=== PATIENT | male | born 1960 | race Caucasian/White ===

== ENCOUNTER → 2018-10-04 09:02 | Outpatient (CLI) | payer BC, SELFPAY ==
--- NOTE | 2018-10-04 09:15 | RAD_ITS ---
STUDY: X-RAY - LUMBAR SPINE REASON FOR EXAM: Male, 58 years old. Disc disease TECHNIQUE: 5 view(s) of the lumbar spine were obtained. COMPARISON: None FINDINGS: A mild spondylolisthesis of L4 over L5 and narrowing at the L5-S1 and L1-L2 disc spaces. There are also degenerative changes involving the lower thoracic spine. There are no acute fractures RAD/L/S Spine Min 4 Views IMPRESSION: Degenerative changes of the lower thoracic spine. Intervertebral osteochondrosis at L1-L2 and L5-S1. No fracture. Mild spondylolisthesis of L4 over L5 Electronically Signed: Filipe Malone MD at 6:12 EST Tel , Service support ,
== END ==
PROVIDERS: Family Provider Family Medicine; PCP Family Medicine; Referring Provider Nurse Practitioner Family; Visit Provider Nurse Practitioner Family
DX: M46.96 Unspecified inflammatory spondylopathy, lumbar region (principal); M51.36 Other intervertebral disc degeneration, lumbar region; M51.26 Other intervertebral disc displacement, lumbar region; M54.5 Low back pain; M79.7 Fibromyalgia; M51.46 Schmorl's nodes, lumbar region
CPT/HCPCS: 72110

== ENCOUNTER 2020-07-01 12:34 | Inpatient (IN) | payer BC, SELFPAY ==
[2020-07-01] VITALS (28 sets, daily range): BP systolic 137–177; BP diastolic 81–148; PULSE 54–85; RESP 13–21; TEMP 35.8; O2SAT 95–100; BMI 35.1; BMI 33.5
--- NOTE | 2020-07-01 12:37 | EKG12_ITS ---
Test Reason : Blood Pressure : / mmHG Vent. Rate : 074 BPM Atrial Rate : 074 BPM P-R Int : 172 ms QRS Dur : 096 ms QT Int : 394 ms P-R-T Axes : 045 046 050 degrees QTc Int : 437 ms Normal sinus rhythm Cannot rule out Anterior infarct , age undetermined Abnormal ECG Hyperacute ST elevation in anterior leads Confirmed by LISSY SHELL, COLIN ([id number]), video effects editor PATRICIA BRANNON ([id number]) on 07/03/2020 10:48:26 AM Referred By: Santos Meng Confirmed By:COLIN YUAN MD
[2020-07-01] MEDS: Aspirin 81 MG TAB.CHEW 324 MG PO (12:40)
[2020-07-01] MEDS: Nitroglycerin SL (ED/IMG/CATH) 0.4 MG TABLET SUBLINGUAL (12:45)
--- NOTE | 2020-07-01 12:45 | RAD_ITS ---
STUDY: X-RAY CHEST REASON FOR EXAM: Male, 59 years old. STEMI TECHNIQUE: Single AP portable view of the chest. COMPARISON: None. FINDINGS: EKG electrodes are seen. The lungs are clear and expanded. Scattered calcified granulomas. There is no demonstrated pleural abnormality. Normal size heart. Normal mediastinum and apple. Normal visualized pulmonary arteries. Normal visualized aortic arch and descending thoracic aorta. Normal visualized thoracic spine. Normal visualized ribs, clavicles, and shoulders. There is no demonstrated abnormality of the visualized soft tissue structures of the upper abdomen. RAD/Chest 1 View (Portable) IMPRESSION: No acute abnormality is seen. Electronically Signed: Mohit Rojas, at 13:03 EDT , Service support ,
[2020-07-01] MEDS: Heparin Injection (Vial) 5,000 UNIT/ML VIAL 5000 UNIT IV (12:48)
[2020-07-01 12:50] LABS: Absolute Lymphocyte Count 4.12 X10^3/uL (0.83-4.51); Absolute Neutrophil Count 4.3 X10^3/uL (2.0-7.7); Basophil# 0.04 X10^3/uL; Basophil% 0.4 % (0-1); Eosinophil# 0.22 X10^3/uL; Eosinophils% 2.3 % (0-5); Hematocrit 47.5 % (40-54); Hemoglobin 16.3 g/dL (13.0-16.5); Lymphocyte # 4.12 X10^3/ul (4.0); Lymphocyte % 43.2 % (19-41); Mean Corp Hgb Conc 34.3 g/dL (32-36); Mean Corpuscular Hgb 30.6 pg (27.0-32.0); Mean Corpuscular Volume 89.3 fL (80-94); Mean Platelet Vol. 10.4 fl (6.2-12.0); Monocyte% 8.4 % (0-10); NRBC Flagged by Analyzer 0 % (0-5); Neutrophil # 4.33 X10^3/uL (2.7-7.7); Neutrophil % 45.5 % (47-70); Platelet Count 278 K/mm3 (150-450); RBC Distribution Width CV 12.1 % (11.6-14.6); RBC Distribution Width SD 39.5 fl (35.1-43.9); Red Blood Count 5.32 M/mm3 (4.6-6.2); White Blood Count 9.5 K/mm3 (4.4-11.0)
--- NOTE | 2020-07-01 12:50 | ED.DCSUM_ITS ---
History of Present Illness Chief Complaint: Chest Pain Informant: Patient Narrative: Patient is a 59-year-old male who presents to the emergency department for active chest pain. He states that this started yesterday. It was initially intermittent but became more constant. He currently rates as an 8 out of 10 but does fluctuate in severity. No radiation of his symptoms. It is over the bilateral chest. He has never had this happen before in the past. Denies any history of CAD. He does have a family history of heart attacks. He states his legs have been swollen over the past couple of days bilaterally. No history of DVT/PE. He is short of breath with this. Patient had a near syncopal episode in the waiting room walking in from his car. He denies any recent illness including a cough, cold, congestion. No fevers or chills. No abdominal pain. Past Medical History - Allergies and Home Meds Allergies/Adverse Reactions: Allergies No Known Allergies Allergy (Verified 07/01/20 12:37) Primary Care Physician: Tam Reid III, MD [Primary Care Provider] - Prior records reviewed: Yes Past Medical History: - - Hypertension Review of Systems All systems negative except as indicated General: Reports: Sweats. Denies: Chills, Fever Eyes: Denies: Visual changes - bilaterally Cardiovascular: Reports: Chest pain. Denies: Palpitations Respiratory: Reports: Dyspnea. Denies: Cough Gastrointestinal: Denies: Abdominal pain, Nausea, Vomiting Musculoskeletal: Reports: Swelling. Denies: Back pain Skin: Denies: Rash Neurological: Denies: Headache, Weakness Physical Exam Vital Signs/Narrative: Vital Signs Temp Pulse Resp BP Pulse Ox 07/01/20 12:35 96.5 F L 67 18 167/148 H 100 Inital Vital Signs reviewed: Yes General: Well nourished, Well developed, Acute Distress, - - Diaphoretic Head: Normocephalic, Atraumatic Eyes: Perrl, EOMI ENT: Moist mucous membranes, No rhinorrhea Neck: Supple, Nontender Cardiovascular: Regular rate, Regular rhythm, No murmurs Respiratory: No distress, CTA bilaterally, Chest nontender Abdomen: Soft, Nontender, Nondistended, Normal bowel sounds Back: Nontender, Normal Inspection Extremities: Nontender Skin: Normal color, No rash Neurological: Alert, Oriented x3, Cranial nerves II-XII grossly intact, Normal Strength, Normal Sensation Psychological: Normal affect, Normal Mood Diagnostic/Tx/Re-eval - EKG Initial EKG Interpretation: - - Initial EKG performed at 1236 showed a rate of 68 bpm. There is mild elevation in V1 with peaked T waves in the anterior lateral leads. No reciprocal changes. Follow-up EKG Interpretation: - - Repeat EKG at 1245 had a ventricular rate of [address] b[address] elevations in the anterior lateral leads. Also some elevation in lead I, 2. There is ST depression in aVR. At that time STEMI alert was called. - Medical Decision Making Patient presents to the ED for chest pain. Upon arrival he is in acute distress, diaphoretic complaining of chest pain. He is given a dose of aspirin and sublingual nitro. He is hypertensive upon arrival. His initial EKG had mild ST elevation in V1 with peak T waves so cardiology was consulted. Shortly after we repeated the EKG which had significant ST elevations and STEMI alert was called. Patient was then taken directly to the [facility]. Initial chest x- ray did not show any evidence of widened mediastinum, this was prior to formal radiologist read. ED Disposition - Plan for ED Patient: Disposition: [facility] Diagnosis: STEMI (ST elevation myocardial infarction), Chest pain, Dyspnea Referrals: Tam Reid III, MD [Primary Care Provider] -
--- NOTE | 2020-07-01 13:03 | NURSING ---
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
[2020-07-01 13:07] LABS: Anion Gap 6 (5-15); BUN 19 mg/dL (7-18); BUN/Creat Ratio 17.4 RATIO (10-20); Calcium,Total 9.4 mg/dL (8.5-10.1); Chloride 110 mmol/L (98-107); Creatinine, Serum 1.09 mg/dL (0.70-1.30); EST Glomerular Filtration Rate 73 mL/min (>60); Est Glom Filt Rate - Afr Amer 89 mL/min (>60); Estimated Creatinine Clearance 74.41 ml/min; Glucose 133 mg/dL (74-106); Magnesium 2.5 mg/dL (1.6-2.6); Partial Thromboplast Time 33.8 Seconds (24.1-36.2); Potassium 3.9 mmol/L (3.5-5.1); Sodium Level 140 mmol/L (136-145)
--- NOTE | 2020-07-01 13:22 | EKG12_ITS ---
Test Reason : CP Blood Pressure : / mmHG Vent. Rate : 068 BPM Atrial Rate : 068 BPM P-R Int : 170 ms QRS Dur : 098 ms QT Int : 406 ms P-R-T Axes : 059 041 035 degrees QTc Int : 431 ms Sinus rhythm with Premature supraventricular complexes Hyperacute ST changes Probable anterior ischemia Confirmed by LISSY SHELL, COLIN ([id number]), social media editor PATRICIA BRANNON ([id number]) on 07/03/2020 10:50:09 AM Referred By: Santos Meng Confirmed By:COLIN YUAN MD
--- NOTE | 2020-07-01 13:23 | EKG12_ITS ---
Test Reason : CP Blood Pressure : / mmHG Vent. Rate : 086 BPM Atrial Rate : 086 BPM P-R Int : 148 ms QRS Dur : 118 ms QT Int : 380 ms P-R-T Axes : 059 050 041 degrees QTc Int : 454 ms Sinus rhythm with Fusion complexes Possible Left atrial enlargement Non-specific intra-ventricular conduction delay Acute Anterior AL Abnormal ECG Confirmed by LISSY SHELL, COLIN ([id number]), legal editor PATRICIA BRANNON ([id number]) on 07/03/2020 10:51:04 AM Referred By: Santos Meng Confirmed By:COLIN YUAN MD
--- NOTE | 2020-07-01 14:00 | EKG12_ITS ---
Test Reason : AM EKG Blood Pressure : / mmHG Vent. Rate : 056 BPM Atrial Rate : 056 BPM P-R Int : 184 ms QRS Dur : 086 ms QT Int : 490 ms P-R-T Axes : 039 034 129 degrees QTc Int : 472 ms Sinus bradycardia Marked T wave abnormality, consider anterolateral ischemia Prolonged QT Septal [place], age undetermined, cannot be excluded Abnormal ECG Confirmed by SLICK SHELL, KENNEY ([id number]), publishing editor MAULIK CALZADA ([id number]) on 07/10/2020 10:02:28 AM Referred By: Santos Meng Confirmed By:KENNEY KRUGER MD
[2020-07-01] MEDS: 0.9% Normal Saline 1,000 ML 60 ML IV (14:28)
--- NOTE | 2020-07-01 14:49 | CRPHASE1 ---
Patient Communication Former Patient:: Phase I PHII Cardiac Rehab Discussed with Patient:: Yes Guide to Cardiac Rehab Given to Patient:: Yes Cardiac Rehab Facility Choice List Given to Patient:: Yes Choice Program [facility] CR PHII:: Communication Given to CR Tube Closing Machine Operator:: Santos Meng Phase II Cardiac Rehab:: Yes Sessions:: 36 sessions - 3 days/wk, 12 weeks Risk Factors/Lifestyle Smoking Status: Former smoker Second-Hand Smoke:: No Hx Hypertension: Yes Hx Diabetes Mellitus Type 1: No Hx Diabetes Mellitus Type 2: No Hx Metabolic Disorders: No Hx Dyslipidemia: No Hx Obesity: Yes Stress: Recent ETOH: Yes Caffeine: Yes Substance Abuse: No Risk Factor for Sedentary Lifestyle: Moderate Risk Past Cardiac Illness: Coronary Artery Disease, Myocardial Infarction Phase I Education Given On:: Viola, Antiplatelet medication Issues Affecting Care:: None Knowledge of Condition:: No Learning Preferences: Verbal Cardiac Rehabilitation Info Cardiac Rehabilitation Program Information: Cardiac Rehabilitation is important for patients like you who are recovering from a heart problem. Cardiac rehabilitation programs are recognized as integral to the continued care of the patient with coronary heart disease. The cardiac rehabilitation program is designed to optimize a patient's physical, psychological, and social functioning. Health adult care manager work in cardiac rehabilitation programs and assist you with getting the treatments you need to get stronger and healthier - like exercise, healthy eating habits, and medications. Cardiac rehabilitation has been show to help people with heart problems live longer and have better life enjoyment than people who do not go to cardiac rehabilitation. Please contact the Cardiac Rehabilitation Program at [facility] at in two weeks if you have not heard from them.
--- NOTE | 2020-07-01 14:52 | CRPH1.INSTRU ---
General Education CAD and cardiac anatomy and function:: Patient communicates acknowledgment Explanation of diagnoses and procedures:: Patient communicates acknowledgment Sign/Symptoms of MN:: Patient communicates acknowledgment Antiplatelet therapy: Patient communicates acknowledgment, Family communicates acknowledgment Proper use of NTG-SL: Patient communicates acknowledgment Emergency procedures and activation of EMS: Patient communicates acknowledgment Compliance of all prescribed medications: Patient communicates acknowledgment Smoking Recommendations Include:: Previous smoker; encourage continued cessation Nicotine/Smoking Response Code:: Patient communicates acknowledgment Dyslipidemia Patient Dyslipidemia Risk Factors Are:: Total Cholesterol, Triglycerides, HDL, LDL Recommendations Include:: Lipid profile not available Dyslipidemia Response Code:: Patient communicates acknowledgment Overweight/Obesity Patient Overweight/Obesity Risk Factors Are:: Obesity - > or = 30 Recommendations Include:: Weight loss of 5-10%, Reduced calorie diet, Exercise 5-7 times/week Overweight/Obesity:: Patient communicates acknowledgment Hypertension Recommendations Include:: Maintain BP <130/85, DASH dietary guidelines, Decrease/maintain normal body weight, Moderation of ETOH Hypertension:: Patient communicates acknowledgment Heart Disease Patient Heart Disease Risk Factors Are:: Family history of heart disease < 65 years old Recommendations Include:: Educated family members of their risk Heart Disease Response Code:: Patient communicates acknowledgment Diabetes Patient Diabetes Risk Factors Are:: No documented hx of diabetes Diabetes:: Patient communicates acknowledgment Sedentary Patient Sedentary Risk Factors Are:: Lack of regular exercise Recommendations Include:: Aerobic exercise 5-7 times/week for 20-30 minutes continuously, Benefits of regular exercise, Discussed home walking program, Monitored Outpatient Cardiac Rehab Sedentary Response Code:: Patient communicates acknowledgment Stress Recommendations Include:: Identification of stressors, and assessment of coping skills, Stress management techniques Stress Response Code:: Patient communicates acknowledgment
--- NOTE | 2020-07-01 15:04 | CASEMGMT ---
RN CM Assessment Note Intro role of CM to patient in room. Patient is awake, alert and able to participate in assessment. Patient states he works, is very independent and no concerns at discharge. Pt is active, states he walks his dog daily. His father and two brothers from heart attacks in their 50's so patient is concerned re: his health. RN CM discussed that he would be given information on diet, exercise and medications on dc and to follow these closely, including follow with his physician. Patient appears upbeat and talkative, deflecting by talking about his dog, but underlying anxious re: this event. Emotional support given, allowed pt to talk about his family history and questions answered. 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 Presentation: active chest pain Diagnosis: STEMI alert called. Pt to cath lab technologist- PCP: Dr. Tam Reid III Specialists: Dr. Meng, cardiology Insurance: [facility] Pharmacy: [place], [place] Prescription Benefit: yes. Brilinta card given to patient and explained. LNOK: , Mariana Saldivar Living Arrangements: Lives independently with his . No care needs identified. Tranportation: drives, or can drive. DME: none HHC: none SNF: none Patient DC Goals: Home DC Plan: anticipate home on discharge. CM available for discharge planning coordination. Contact CM for any concerns/needs that may arise. Ildefonso BANERJEE RN ACM
--- NOTE | 2020-07-01 15:07 | CON.PCM_ITS ---
Reason for Consult Date of Consultation: 07/01/20 Reason for Consultation: STEMI History of Present Illness: Patient is a 59-year-old male who presents to the emergency department for active chest pain. He states that this started yesterday. It was initially intermittent but became more constant. No radiation of his symptoms. It is over the bilateral chest. He has never had this happen before in the past. Denies any history of CAD. He does have a family history of heart attacks. He states his legs have been swollen over the past couple of days bilaterally. No history of DVT/PE. He is short of breath with this. Patient had a near syncopal episode in the waiting room walking in from his car. He denies any recent illness including a cough, cold, congestion. No fevers or chills. No abdominal pain. In the emergency room initial EKG did not show a definite STEMI but a subsequent EKG done at 12:[address] elevation [place]. Patient was evaluated in the emergency room. He was then brought to the Extrusion Press Supervisor and underwent coronary angiography which revealed 100% occlusion of the mid LAD that was treated with thrombectomy and drug-eluting stent placement. Patient was chest pain-free at the end of the procedure. Review of systems: All systems reviewed. All others negative except that in HPI. Past Medical History Allergies/Adverse Reactions: Allergies No Known Allergies Allergy (Verified 07/01/20 12:37) Home Medications: Ambulatory Orders Medication Instructions Recorded Amlodipine [Norvasc] 10 mg PO DAILY 07/01/20 Diclofenac [Voltaren] 75 mg PO DAILY 07/01/20 Gabapentin 600 mg PO TID 07/01/20 Oxycodone HCl/Acetaminophen 1 ea PO TID 07/01/20 [Oxycodone-Acetaminophen 5-325] Smoking Status: Former smoker Objective: Vital Signs Temp Pulse Resp BP Pulse Ox 96.5 F L 67 18 139/90 H 98 07/01/20 13:05 07/01/20 14:45 07/01/20 14:45 07/01/20 14:45 07/01/20 14:45 Oxygen Flow Rate (L/min) 2 Oxygen Delivery Method Room Air Weight: 233 lb 3.985 oz Body Mass Index (BMI) 33.5 General: Awake, Alert, Oriented x 3 HEENT: Atraumatic Oral: Moist Mucosa Neck: Supple Lungs: Clear to auscultation Abdomen: Soft Skin: No Rashes Psych/Mental Status: Appropriate 07/01/20 12:33: WBC 9.5, RBC 5.32, Hgb 16.3, Hct 47.5, MCV 89.3, MCH 30.6, MCHC 34.3, Plt Count 278, MPV 10.4, Immature Gran % (Auto) 0.200, Neut % (Auto) 45.5 L, Lymph % (Auto) 43.2 H, [place] % (Auto) 8.4, Eos % (Auto) 2.3, Baso % (Auto) 0.4, Absolute Neuts (auto) 4.3, Nucleated RBC % 0 07/01/20 12:33: Sodium 140, Potassium 3.9, Chloride 110 H, Carbon Dioxide 24.0, Anion Gap 6, BUN 19 H, Creatinine 1.09, Est GFR (MDRD) Af Amer 89, Est GFR (MDRD) Non-Af 73, BUN/Creatinine Ratio 17.4, Glucose 133 H, Calcium 9.4, Magnesium 2.5, Troponin I 0.946 H* 07/01/20 12:33: APTT 33.8 Rhythm: EKG: ECHO: Stress Test: Cardiac Cath: PCI: CT Surgery: Holter monitor: EPS: PPM: CXR: Chest CT Scan: Assessment/Plan 1. STEMI: Patient underwent thrombectomy and drug-eluting stent placement to the LAD. We will keep the patient on aspirin, Brilinta, Coreg, lisinopril, statin. He does have significant LV dysfunction on the LV gram. 2. LV dysfunction: Patient presented soon after his symptoms became persistent. We will check a 2D echo while he is in the hospital. If his EF is still low then he may need another EF assessment in 3 months. For now we will continue the Coreg and lisinopril. 3. Hypertension: We will adjust his medications while he is in the hospital.
--- NOTE | 2020-07-01 15:31 | EKG12_ITS ---
Test Reason : POST PCI Blood Pressure : / mmHG Vent. Rate : 060 BPM Atrial Rate : 060 BPM P-R Int : 186 ms QRS Dur : 092 ms QT Int : 396 ms P-R-T Axes : 028 054 005 degrees QTc Int : 396 ms Normal sinus rhythm Normal ECG When compared with ECG of 01-JUL-2020 12:45, MANUAL COMPARISON REQUIRED, DATA IS UNCONFIRMED Confirmed by RUTHANN SHELL, MARIAN ([id number]), purchasing expeditor PATRICIA BRANNON ([id number]) on 07/11/2020 1:38:15 PM Referred By: Santos Meng Confirmed By:CON MENG MD
--- NOTE | 2020-07-01 15:34 | ECHOCS_ITS ---
Reason For Study: STEMI Procedure This was a 2D Doppler, Color Flow transthoracic echocardiogram. The study was technically difficult. Contrast injection was performed. Exam performed portable in ICU/CCU. Left Ventricle Normal LV size. The estimated ejection fraction is 35-40 %. Stage 1 diastolic dysfunction. Hypokinesis of the apex and anterior wall. Right Ventricle Normal RV size. Normal systolic function. Atria Normal left atrium. Normal right atrium. Mitral Valve There is no mitral valve stenosis. No mitral valve insufficiency. Tricuspid Valve There is no tricuspid stenosis. Trivial tricuspid valve insufficiency. Unable to estimate RV systolic pressure due to insufficient tricuspid regurgitant envelope. Aortic Valve Trisinus/trileaflet aortic valve. There is no aortic stenosis. No aortic valve insufficiency. Pulmonic Valve There is no pulmonic valvular stenosis. No pulmonic valve insufficiency. Great Vessels Normal aortic root. Pericardium/Pleural No pericardial effusion. Medication Diluted definity 3ml given slow IV push to enhance endocardial definition. MMode/2D Measurements & Calculations LVIDd: 4.9 cm IVSd: 1.7 cm LA dimension: 4.6 cm LVIDs: 2.6 cm LVPWd: 1.2 cm FS: 46.3 % LAV(MOD-bp): 64.6 ml LA A4 area: 19.9 cm2 RA A4 area: 17.4 cm2 LAV(MOD-bp) Indexed: 29.0 ml/m2 LAV(MOD-sp2): 61.8 ml LAV(MOD-sp4): 59.5 ml Time Measurements MV dec time: 0.22 sec Doppler Measurements & Calculations MV E max nathaniel: 32.8 cm/sec Lat Peak E' Nathaniel: 7.3 cm/sec Med Peak E' Nathaniel: 4.8 cm/sec MV A max nathaniel: 78.2 cm/sec E/E' lat: 4.5 E/E' med: 6.8 MV E/A: 0.42 MV V2 max: 86.7 cm/sec MV P1/2t max nathaniel: 66.0 cm/sec Ao V2 max: 107.2 cm/sec MV max P.0 mmHg MV P1/2t: 56.0 msec Ao max P.6 mmHg MV V2 mean: 39.0 cm/sec MV dec slope: 345.1 cm/sec2 MV mean P.75 mmHg MV V2 VTI: 22.2 cm MVA(P1/2t): 3.9 cm2 LV V1 max: 101.2 cm/sec PA V2 max: 122.3 cm/sec LV V1 max P.1 mmHg Interpretation Summary The estimated ejection fraction is 35-40 %. Stage 1 diastolic dysfunction. Hypokinesis of the apex and anterior wall Ordering Physician: Derik Roca Referring Physician: FANNY Reid M.D. Performed By: Danny Barnes RCS
--- NOTE | 2020-07-01 15:34 | PCM.HP.STD ---
Problem List (1) STEMI (ST elevation myocardial infarction) Status: Acute (2) Chest pain Status: Acute (3) Dyspnea Status: Acute History of Present Illness Date of Admission: 07/01/20 Chief Complaint: chest pain The patient is a 59 year old M who was in his normal state of health and then yesterday started having some slight midsternal chest pain. Chest pain did resolve and then around lunchtime was much more pronounced and heavy as though someone sitting on his chest. Drove self to the hospital where he nearly passed out when he arrived. Initial EKGs did not show any acute changes but then subsequently developed ST elevations in anterior and lateral leads. Patient was taken to [facility] and had a stent placed to the LAD. He was noted to have LV dysfunction on his heart catheterization as well. Patient is never had a myocardial infarction before. [] Past Medical History Medical History: Medical History (Last Updated 07/01/20 @ 15:[address] Derik Roca, DO) DDD (degenerative disc disease) HTN (hypertension) I10 Allergies No Known Allergies Allergy (Verified 07/01/20 12:37) Home Medications: Ambulatory Orders Medication Instructions Recorded Amlodipine [Norvasc] 10 mg PO DAILY 07/01/20 Diclofenac [Voltaren] 75 mg PO DAILY 07/01/20 Gabapentin 600 mg PO TID 07/01/20 Oxycodone HCl/Acetaminophen 1 ea PO TID 07/01/20 [Oxycodone-Acetaminophen 5-325] Smoking Status: Former smoker Alcohol: Occasional Drugs: None - *Family History Paternal History Items: Heart Disease Review of Systems Constitutional: Denies: Anorexia, Chills, Fever Eyes: Denies: Blurred vision, Double vision HEENT: Denies: Head Aches, Sinus Congestion, Sinus Drainage Cardiovascular: Reports: Chest Pain. Denies: Palpitations Respiratory: Denies: Cough, Shortness of breath at rest, Sputum production Gastrointestinal: Reports: Nausea. Denies: Abdominal Pain, Vomiting Genitourinary: Denies: Dysuria Musculoskeletal: Denies: Joint Pain, Joint Tenderness Skin: Denies: Rash, Wounds Neurological: Denies: Numbness, Tingling, Focal weakness Hematologic/ Lymphatic: Denies: Easy Bruising, Easy Bleeding, Hx of blood clot Comment: All review of systems were negative except as mentioned above in the history of present illness and the other review of systems. VTE Information - Inpt Only VTE Present on Admission: No VTE Mechan Device Prophylaxis: None VTE Pharm Prophylaxis ordered?: Yes Patient Problems: Active and Suspected Problems STEMI (ST elevation myocardial infarction) (Acute) Chest pain (Acute) Dyspnea (Acute) - Physical Exam Vitals/I&O's: Vital Signs Temp Pulse Resp BP Pulse Ox 35.8 C L 68 18 137/93 H 98 07/01/20 13:05 07/01/20 15:00 07/01/20 15:00 07/01/20 15:00 07/01/20 15:00 Oxygen Flow Rate (L/min) 2 Oxygen Delivery Method Room Air Weight: 105.8 kg Body Mass Index (BMI) 33.5 General: Alert, Cooperative, No apparent distress, Well developed, Well nourished HEENT: Atraumatic, Normocephalic Oral: Moist Mucosa, No Gingival or Mucosal Lesions/ Ulcerations Neck: No Nodes, Thyroid Normal Size and Texture Lungs: Clear to auscultation, Normal air movement, No rhonchi, No wheeze, No rales Cardiovascular: Regular rate, Regular Rhythm, Normal S1, Normal S2, No murmurs Abdomen: Bowel Sounds Present, Soft, Non Tender, Non-Distended, No Hepato-splenomegaly Extremities: No edema, Capillary Refill Less than 3 Seconds, No Calf Tenderness Skin: No rashes, No breakdown Musculoskeletal: No Tenderness to Palpation of Joints or Extremities Neurological: Sensory exam intact to light touch and pain, - - No clonus Psych/Mental Status: Normal Affect, Appropriate Laboratory Results 07/01/20 12:33: WBC 9.5, RBC 5.32, Hgb 16.3, Hct 47.5, MCV 89.3, MCH 30.6, MCHC 34.3, RDW Std Deviation 39.5, RDW Coeff of Angel 12.1, Plt Count 278, MPV 10.4, Immature Gran % (Auto) 0.200, Neut % (Auto) 45.5 L, Lymph % (Auto) 43.2 H, [place] % (Auto) 8.4, Eos % (Auto) 2.3, Baso % (Auto) 0.4, Absolute Neuts (auto) 4.3, Absolute Lymphs (auto) 4.12, Nucleated RBC % 0 07/01/20 12:33: Sodium 140, Potassium 3.9, Chloride 110 H, Carbon Dioxide 24.0, Anion Gap 6, BUN 19 H, Creatinine 1.09, Estim Creat Clear Calc 74.41, Est GFR (MDRD) Af Amer 89, Est GFR (MDRD) Non-Af 73, BUN/Creatinine Ratio 17.4, Glucose 133 H, Calcium 9.4, Magnesium 2.5, Troponin I 0.946 H* 07/01/20 12:33: APTT 33.8 EKG reviewed and showed ST patient is an anterior and lateral leads precath. Current Medications Aspirin (Ecotrin) 81 mg PO DAILY@0800 [facility] Atorvastatin Calcium (Lipitor) 80 mg PO QHS [facility] Atropine Sulfate () 0.5 mg IV UD PRN PRN Reason: HR <50 bpm Carvedilol (Coreg) 6.25 mg PO BID [facility] Gabapentin (Neurontin) 600 mg PO TID [facility] Heparin Sodium (Beef Lung) (Heparin 500 Unit/5 Ml (100/Ml)) 500 unit IV UD PRN PRN Reason: HEPARIN FLUSH Sodium Chloride () 1,000 mls @ 60 mls/hr IV .[id number] [facility] Stop: 07/01/20 19:49 Last Admin: 07/01/20 14:28 Dose: 60 mls/hr Documented by: Eptifibatide (Integrilin) 75 mg in 100 mls @ 17.76 mls/hr CONT INF .[id number] [facility] Stop: 07/01/20 16:00 Last Admin: 07/01/20 14:28 Dose: 2 mcg/kg/min, 17.8 mls/hr Documented by: Labetalol HCl (Trandate) 5 mg IV X1 PRN PRN Reason: SBP > 160 when pulling sheath Stop: 07/03/20 13:51 Lisinopril (Zestril) 5 mg PO DAILY [facility] Nitroglycerin (Nitrostat) 0.4 mg SUBLINGUAL Q5M PRN PRN Reason: Chest pain Last Admin: 07/01/20 12:45 Dose: 0.4 mg Documented by: Non-Formulary Medication (Oxycodone Hcl/Acetaminophen [Oxycodone-Acetaminophen 5-325]) 1 ea PO TID [facility] Sodium Chloride () 500 ml IV BOLUS PRN PRN Reason: VASO-VAGAL PROTOCOL Sodium Chloride () 10 - 40 ml IV UD PRN PRN Reason: SALINE FLUSH Ticagrelor (Brilinta) 90 mg PO BID [place] Assessment/Plan All Active Problems STEMI (ST elevation myocardial infarction) (Acute) Chest pain (Acute) Dyspnea (Acute) 1. ST elevation myocardial infarction: Status post PCI to the LAD. Patient on Brilinta, ticagrelor, high intensity statin with atorvastatin 80 mg. Patient eventually will need cardiac rehab. Cardiology will continue to follow. Additionally, patient started on carvedilol and lisinopril. 2. Ischemic cardiomyopathy: Patient was noted to have LV dysfunction on heart catheterization. Check an echocardiogram. Patient will require further follow-up from a cardiac standpoint. 3. Hypertension: Patient is on amlodipine at home. That is currently being held for now. Continue with carvedilol and lisinopril and over time titrate those upwards as tolerated. 4. VTE prophylaxis: Moderate risk. Kendall apparent. 5. Advanced care planning: Discussed with the patient. Patient wished to be full CODE STATUS at this time. Encouraged him to have further discussions with his family after discharge about goals of care in the future.
--- NOTE | 2020-07-01 21:34 | NURSING ---
pt home percocet removed from room, two tablets counted and locked in narcotic environmental engineering aide med room- witnessed with Arin Villa RN.
[2020-07-01] MEDS: Atorvastatin Calcium 80 MG Tablet PO (21:50)
[2020-07-01] MEDS: Carvedilol 6.25 MG Tablet PO (21:50)
[2020-07-01] MEDS: TICAGRELOR 90 MG TABLET PO (21:50)
[2020-07-01] MEDS: oxyCODONE 5 MG Tablet PO (21:50)
[2020-07-01] MEDS: Gabapentin 600 MG Tablet PO (21:50)
[2020-07-01] MEDS: 0.9% Saline Lock 10 ML Syringe IV (21:52)
[2020-07-02] VITALS (22 sets, daily range): BP systolic 109–154; BP diastolic 71–94; PULSE 49–65; RESP 11–23; TEMP 36.7–37.1; O2SAT 95–99
[2020-07-02 04:27] LABS: Hematocrit 43.7 % (40-54); Hemoglobin 15.5 g/dL (13.0-16.5); Mean Corp Hgb Conc 35.5 g/dL (32-36); Mean Corpuscular Hgb 31.8 pg (27.0-32.0); Mean Corpuscular Volume 89.7 fL (80-94); Mean Platelet Vol. 10.3 fl (6.2-12.0); Platelet Count 218 K/mm3 (150-450); RBC Distribution Width CV 11.9 % (11.6-14.6); RBC Distribution Width SD 38.5 fl (35.1-43.9); Red Blood Count 4.87 M/mm3 (4.6-6.2); White Blood Count 10.2 K/mm3 (4.4-11.0)
[2020-07-02 04:43] LABS: ALB/GLOB Ratio 1.1 RATIO (0.9-2.4); AST(SGOT) 137 U/L (15-37); Alanine Aminotransfer ALT/SGPT 87 U/L (16-61); Albumin, Serum 3.7 g/dL (3.2-5.0); Alkaline Phosphatase 50 U/L (45-117); Anion Gap 6 (5-15); BUN 16 mg/dL (7-18); BUN/Creat Ratio 18.2 RATIO (10-20); Calcium,Total 8.4 mg/dL (8.5-10.1); Chloride 108 mmol/L (98-107); Creatinine, Serum 0.88 mg/dL (0.70-1.30); EST Glomerular Filtration Rate 94 mL/min (>60); Est Glom Filt Rate - Afr Amer 113 mL/min (>60); Estimated Creatinine Clearance 92.17 ml/min; Globulin 3.4 g/dL (2.2-4.2); Glucose 122 mg/dL (74-106); Potassium 3.9 mmol/L (3.5-5.1); Protein, Total 7.1 g/dL (6.4-8.2); Sodium Level 138 mmol/L (136-145)
[2020-07-02] MEDS: Gabapentin 600 MG Tablet PO ×3 (05:16→21:32)
[2020-07-02] MEDS: oxyCODONE 5 MG Tablet PO ×3 (05:16→21:35)
--- NOTE | 2020-07-02 08:19 | PN_ITS ---
Patient Problems: Active and Suspected Problems (Last Updated 07/01/20 @ 15:[address] Derik Roca, DO) STEMI (ST elevation myocardial infarction) (Acute) Chest pain (Acute) Dyspnea (Acute) Reason for Visit: Follow-up on chest pain Subjective: Patient seen and examined. Patient feels improved. No chest pain, dizziness, palpitations. No acute events. Objective: Physical exam: General: Alert, Cooperative, No apparent distress, Well developed, Well nourished HEENT: Atraumatic, Normocephalic Oral: Moist Mucosa, No Gingival or Mucosal Lesions/ Ulcerations Neck: No Nodes, Thyroid Normal Size and Texture Lungs: Clear to auscultation, Normal air movement, No rhonchi, No wheeze, No rales Cardiovascular: Regular rate, Regular Rhythm, Normal S1, Normal S2, No murmurs Abdomen: Bowel Sounds Present, Soft, Non Tender, Non-Distended, No Hepato- splenomegaly Extremities: No edema, Capillary Refill Less than 3 Seconds, No Calf Tenderness Skin: No rashes, No breakdown Musculoskeletal: No Tenderness to Palpation of Joints or Extremities Neurological: Sensory exam intact to light touch and pain, - - No clonus Psych/Mental Status: Normal Affect, Appropriate Vitals/I&O's: Vital Signs Temp Pulse Resp BP Pulse Ox 98.1 F 56 L 12 123/79 H 97 07/02/20 07:57 07/02/20 07:58 07/02/20 07:57 07/02/20 07:57 07/02/20 07:57 Oxygen Flow Rate (L/min) 2 Oxygen Delivery Method Room Air Weight: 103.8 kg Body Mass Index (BMI) 33.5 Intake and Output for Last 24 Hours 06/30/20 07/01/20 07/02/20 23:59 23:59 23:59 Intake Total 439.29 / 679.29 240 / 240 Output Total 700 / 700 Balance -260.71 / -20.71 240 / 240 Laboratory Results 07/01/20 12:33: WBC 9.5, RBC 5.32, Hgb 16.3, Hct 47.5, MCV 89.3, MCH 30.6, MCHC 34.3, RDW Std Deviation 39.5, RDW Coeff of Angel 12.1, Plt Count 278, MPV 10.4, Immature Gran % (Auto) 0.200, Neut % (Auto) 45.5 L, Lymph % (Auto) 43.2 H, [place] % (Auto) 8.4, Eos % (Auto) 2.3, Baso % (Auto) 0.4, Absolute Neuts (auto) 4.3, Absolute Lymphs (auto) 4.12, Nucleated RBC % 0 07/01/20 12:33: Sodium 140, Potassium 3.9, Chloride 110 H, Carbon Dioxide 24.0, Anion Gap 6, BUN 19 H, Creatinine 1.09, Estim Creat Clear Calc 74.41, Est GFR (MDRD) Af Amer 89, Est GFR (MDRD) Non-Af 73, BUN/Creatinine Ratio 17.4, Glucose 133 H, Calcium 9.4, Magnesium 2.5, Troponin I 0.946 H* 07/01/20 12:33: APTT 33.8 07/01/20 18:00: Troponin I 42.300 H* 07/01/20 20:25: Troponin I 56.400 H* 07/01/20 23:15: Troponin I 38.100 H* 07/02/20 04:20: WBC 10.2, RBC 4.87, Hgb 15.5, Hct 43.7, MCV 89.7, MCH 31.8, MCHC 35.5, RDW Std Deviation 38.5, RDW Coeff of Angel 11.9, Plt Count 218, MPV 10.3 07/02/20 04:20: Sodium 138, Potassium 3.9, Chloride 108 H, Carbon Dioxide 24.0, Anion Gap 6, BUN 16, Creatinine 0.88, Estim Creat Clear Calc 92.17, Est GFR (MDRD) Af Amer 113, Est GFR (MDRD) Non-Af 94, BUN/Creatinine Ratio 18.2, Glucose 122 H, Calcium 8.4 L, Total Bilirubin 1.50 H, AST 137 H, ALT 87 H, Alkaline Phosphatase 50, Total Protein 7.1, Albumin 3.7, Globulin 3.4, Albumin/Globulin Ratio 1.1 Current Medications Acetaminophen (Tylenol) 650 mg PO Q6H PRN PRN PRN Reason: Pain Score 1-10/Temp > 100.7 F Aspirin (Ecotrin) 81 mg PO DAILY@0800 [facility] Atorvastatin Calcium (Lipitor) 80 mg PO QHS [facility] Last Admin: 07/01/20 21:50 Dose: 80 mg Documented by: Atropine Sulfate () 0.5 mg IV UD PRN PRN Reason: HR <50 bpm Carvedilol (Coreg) 6.25 mg PO BID [facility] Last Admin: 07/01/20 21:50 Dose: 6.25 mg Documented by: Enoxaparin Sodium (Lovenox) 40 mg SC DAILY [facility] Gabapentin (Neurontin) 600 mg PO TID [facility] Last Admin: 07/02/20 05:16 Dose: 600 mg Documented by: Heparin Sodium (Beef Lung) (Heparin 500 Unit/5 Ml (100/Ml)) 500 unit IV UD PRN PRN Reason: HEPARIN FLUSH Labetalol HCl (Trandate) 5 mg IV X1 PRN PRN Reason: SBP > 160 when pulling sheath Stop: 07/03/20 13:51 Lisinopril (Zestril) 5 mg PO DAILY [facility] Nitroglycerin (Nitrostat) 0.4 mg SUBLINGUAL Q5M PRN PRN Reason: Chest pain Last Admin: 07/01/20 12:45 Dose: 0.4 mg Documented by: Oxycodone HCl (Oxyir) 5 mg PO TID [facility] Last Admin: 07/02/20 05:16 Dose: 5 mg Documented by: Oxycodone HCl (Oxyir) 5 mg PO Q4H PRN PRN PRN Reason: Pain Score 4-5/10 Oxycodone HCl (Oxyir) 10 mg PO Q4H PRN PRN PRN Reason: Pain Score 6-10/10 Sodium Chloride () 500 ml IV BOLUS PRN PRN Reason: VASO-VAGAL PROTOCOL Sodium Chloride () 10 - 40 ml IV UD PRN PRN Reason: SALINE FLUSH Last Admin: 07/01/20 21:52 Dose: 40 ml Documented by: Ticagrelor (Brilinta) 90 mg PO BID [facility] Last Admin: 07/01/20 21:50 Dose: 90 mg Documented by: STROKE Vital Signs/Narrative: Vital Signs Temp Pulse Resp BP Pulse Ox 07/02/20 07:58 56 L 07/02/20 07:57 98.1 F 56 L 12 123/79 H 97 07/02/20 07:16 98 07/02/20 07:00 52 L 16 126/79 H 97 07/02/20 06:00 57 L 11 L 113/74 98 07/02/20 05:00 98.7 F 49 L 13 109/79 98 Medical Necessity - Tobacco Use Smoking Status: Former smoker Assessment/Plan All Active Problems (Last Updated 07/01/20 @ 15:[address] Derik Roca, DO) STEMI (ST elevation myocardial infarction) (Acute) Chest pain (Acute) Dyspnea (Acute) 1. Acute STEMI, s/p catheterization status post thrombectomy and stent in mid LAD Patient is stable. Continue on aspirin, Brilinta statin, carvedilol, lisinopril 2. Ischemic cardiomyopathy, severe, EF of 20 to 25% 2D echo is pending, continue lisinopril 3. Hypertension, controlled, continue on lisinopril, carvedilol 4. Acute kidney injury, prerenal related to #1 Resolved, patient was admitted with creatinine 1.18, Baseline creatinine is less than 1 5. DVT PPx-Lovenox subcu Inpatient E&M: 91266 Subs Hosp L2
--- NOTE | 2020-07-02 10:00 | EKG12_ITS ---
Test Reason : AM EKG Blood Pressure : / mmHG Vent. Rate : 052 BPM Atrial Rate : 052 BPM P-R Int : 184 ms QRS Dur : 100 ms QT Int : 468 ms P-R-T Axes : 040 018 017 degrees QTc Int : 435 ms Sinus bradycardia Anterior infarct Abnormal ECG When compared with ECG of 01-JUL-2020 14:01, MANUAL COMPARISON REQUIRED, DATA IS UNCONFIRMED Confirmed by RUTHANN SHELL, MARIAN ([id number]), field map editor PATRICIA BRANNON ([id number]) on 07/11/2020 1:37:25 PM Referred By: Santos Meng Confirmed By:CON MENG MD
[2020-07-02] MEDS: Enoxaparin 40 MG/0.4 ML Syringe SC (10:11)
[2020-07-02] MEDS: Aspirin E.C. 81 MG Tablet PO (10:11)
[2020-07-02] MEDS: Carvedilol 6.25 MG Tablet PO ×2 (10:11→21:32)
[2020-07-02] MEDS: TICAGRELOR 90 MG TABLET PO ×2 (10:11→21:32)
[2020-07-02] MEDS: Lisinopril 5 MG Tablet PO (10:13)
--- NOTE | 2020-07-02 10:33 | CL.I_ITS ---
Patient Name: GELA GONZALEZ Study Date: 07/01/2020 Performing: Corine Meng MD Ht: 70 inches 178 cm : 1960 Wt: 245 lbs 111 kg Age: 59 Gender: male BSA: 2.28 PROCEDURE(S) PERFORMED [id number]/LV [id number], ADRIENNE AND/OR PTCA, ARTERY OR GRAFT, SINGLE VESSEL CLINICAL PROFILE AND CO-MORBIDITIES Indications: ACS <= 24 hrs Heart Failure: None Stress/Imaging Stress/Image Study Performed: No CAD Presentations: STEMI. Symptom onset Date/Time: 07/01/20 Time 12pm CONCLUSIONS CAD as described. Severe LV dysfunction. EF is 20-25%. No significant or MR. Successful thrombecto my and ADRIENNE to mLAD RECOMMENDATIONS ASA Indefinitley Brilinta for at least 12 months Follow up with primary kitchen hand DESCRIPTION OF PROCEDURE The patient arrived to the procedure lab. The risks and benefits of the procedure as well as a full d escription of our services here and lack of surgical backup were fully explained to the patient and/o r their significant other prior to the catheterization. The Timeout was completed, verifying the souleymane ect patient and procedure. The patient's procedural site was prepped and draped in the usual fashion. Local anesthetic was given subcutaneously to right radial region with Lidocaine 2%. Using a modified Seldinger technique, arterial access was obtained via the right radial artery, a 6Fr sheath was inse rted.. Left Ventriculography was performed in CARDENAS projection using a 5 Fr. JR4 catheter. LV to AO pu llback pressures were then recorded XB 3.5 Guide catheter was inserted and engaged into the LCA. BMW Guide wire was advanced to the L AD. Priority One inserted Pass # 1 Priority One Removed 2.5X12 EMERGE Balloon catheter was inserted. Balloon catheter was advanced across lesion in the LAD, mid. PTCA balloon inflated at 6 atms for 18 s ecs. PTCA balloon inflated at 6 atms for 15 secs. Angiogram performed pre stent deployment. 3.0X20 SY NERGY Drug Eluting stent was inserted. Drug Eluting stent was advanced across the lesion in the LAD, mid. Angiogram performed post stent deployment. Angiogram performed post stent deployment. The sarah rial sheath was pulled and a TR Band was applied for hemostasis - 16CC AIR CORONARY ANGIOGRAPHY DOMINANCE: Right Dominant LEFT HEART ASSESSMENT Left Ventricular Ejection Fraction: by LV Gram 20-25 % Anterior Hypokinesis - Severe. Apical Hypokinesis - Severe LEFT MAIN: Mild luminal irregularities LEFT ANTERIOR DESCENDING ARTERY: MID LAD: 100 % Stenosis CIRCUMFLEX ARTERY: Mild luminal irregularities OM 2: Mid - 60 % Stenosis RIGHT CORONARY ARTERY: MID RCA: 60 % Stenosis VALVE FINDINGS: No Aortic Valve Stenosis No Mitral Insufficency INTERVENTION INFORMATION LESION SITE: LAD (Mid) Lesion Complexity: High/C, chronic total occlusion: No, lesion at bifurcation: No, thrombus present: Yes, lesion length: 16 mm, culprit lesion: Yes, Previously treated lesion: No Pre Stenosis: 100 % Pre intervention JOÃO flow: 0 PROCEDURE: Thrombectomy, Drug Eluting Stent with pre dilatation. Post Stenosis: 0 % Post intervention JOÃO flow: 3 Lesion Devices: Cardinal 6 Fr XB3.5 100cm Guide Catheter [place] .014 BMW Middle Bass Straight 190cm Terumo Priority One Aspiration Catheter Reji Sci EMERGE MR 2.50x12 BALLOON Reji Sci Synergy MR ADRIENNE 3.00x20 COMPLICATIONS No Complications PROCEDURE MEDICATIONS Versed 1 mg IV Oxygen: 2 L/min via nasal cannula Brilinta 180 mg PO @ 07/01/2020 13:47:09 Nitro 200 mcg IC 07/01/2020 13:02:35 SUMMARY OF HEMODYNAMIC DATA Time AIR REST ECG 12:56:46 AO 138/18 (103) SA 13:04:21 LV 148/2, 30 13:21:36 LV 144/5, 32 13:21:42 LV 141/2, 30 13:22:37 LVp 140/8, 32 13:22:48 AOp 138/77 (102) 13:22:53 Signed By Corine Meng MD On 07/02/2020 10:47:37 Corine Meng MD
--- NOTE | 2020-07-02 15:02 | NURSING ---
report called to pcu transferred with belongings per chair to room 105
--- NOTE | 2020-07-02 16:53 | PCM.PN.CARD ---
Subjectve: Patient is doing well. He denies any chest pain. Objective: Vital Signs Temp Pulse Resp BP Pulse Ox 98.5 F 63 16 133/80 H 97 07/02/20 15:34 07/02/20 15:34 07/02/20 15:34 07/02/20 15:34 07/02/20 15:34 Oxygen Flow Rate (L/min) 2 Oxygen Delivery Method Room Air Weight: 228 lb 13.437 oz Body Mass Index (BMI) 33.5 Intake and Output for Last 24 Hours 06/30/20 07/01/20 07/02/20 23:59 23:59 23:59 Intake Total 439.29 / 679.29 440 / 440 Output Total 700 / 700 Balance -260.71 / -20.71 440 / 440 General: Awake, Alert, Oriented x 3 HEENT: Atraumatic Oral: Moist Mucosa Neck: Supple Lungs: Clear to auscultation Cardiovascular: Normal S1, Normal S2 Extremities: No edema Skin: No Rashes Psych/Mental Status: Appropriate 07/01/20 18:00: Troponin I 42.300 H* 07/01/20 20:25: Troponin I 56.400 H* 07/01/20 23:15: Troponin I 38.100 H* 07/02/20 04:20: WBC 10.2, RBC 4.87, Hgb 15.5, Hct 43.7, MCV 89.7, MCH 31.8, MCHC 35.5, Plt Count 218, MPV 10.3 07/02/20 04:20: Sodium 138, Potassium 3.9, Chloride 108 H, Carbon Dioxide 24.0, Anion Gap 6, BUN 16, Creatinine 0.88, Est GFR (MDRD) Af Amer 113, Est GFR (MDRD) Non-Af 94, BUN/Creatinine Ratio 18.2, Glucose 122 H, Calcium 8.4 L, Total Bilirubin 1.50 H Rhythm: EKG: ECHO: Stress Test: Cardiac Cath: PCI: CT Surgery: Holter monitor: EPS: PPM: CXR: Chest CT Scan: Medical Necessity - Tobacco Use Smoking Status: Former smoker Assessment/Plan 1. STEMI: Patient underwent thrombectomy and drug-eluting stent placement to the LAD. We will keep the patient on aspirin, Brilinta, Coreg, lisinopril, statin. 2. LV dysfunction: Patient had an EF of around 35 to 40% on 2D echo. We will continue the Coreg and lisinopril at this time. Prior to discharge if his blood pressure allows we will try to increase his lisinopril to 10 mg p.o. daily. He may need another echo in 3 months to assess his EF. 3. Hypertension: We will adjust his medications while he is in the hospital. If patient continues to do well he could potentially be discharged tomorrow.
[2020-07-02] MEDS: Atorvastatin Calcium 80 MG Tablet PO (21:32)
[2020-07-03 03:00] VITALS: PULSE 53
[2020-07-03 03:30] VITALS: BP 114/57; PULSE 55; RESP 16; TEMP 36.7; O2SAT 94
[2020-07-03] MEDS: oxyCODONE 5 MG Tablet PO (05:21)
[2020-07-03] MEDS: Gabapentin 600 MG Tablet PO (05:22)
[2020-07-03 06:35] LABS: Hemoglobin 15.4 g/dL (13.0-16.5); Mean Corpuscular Hgb 31.9 pg (27.0-32.0); Mean Corpuscular Volume 91.1 fL (80-94); Mean Platelet Vol. 10.4 fl (6.2-12.0); Platelet Count 227 K/mm3 (150-450); RBC Distribution Width CV 12.2 % (11.6-14.6); RBC Distribution Width SD 40.3 fl (35.1-43.9); Red Blood Count 4.83 M/mm3 (4.6-6.2); White Blood Count 9.9 K/mm3 (4.4-11.0)
[2020-07-03 07:00] VITALS: PULSE 59
[2020-07-03 07:30] VITALS: O2SAT 96
[2020-07-03 09:57] VITALS: BP 135/81; PULSE 60; RESP 14; TEMP 36.7; O2SAT 94
[2020-07-03] MEDS: Lisinopril 5 MG Tablet PO (10:05)
[2020-07-03] MEDS: Aspirin E.C. 81 MG Tablet PO (10:05)
[2020-07-03] MEDS: TICAGRELOR 90 MG TABLET PO (10:05)
[2020-07-03] MEDS: Carvedilol 6.25 MG Tablet PO (10:05)
--- NOTE | 2020-07-03 11:14 | DCINST_ITS ---
- Discharge Diagnoses Current Active Problems: Current Active and Chronic Problems (Last Updated 07/02/20 @ 14:14 by Bobbi Ramirez) Atherosclerosis of coronary artery of [place] heart without angina pectoris (Acute) Essential hypertension (Chronic) History of coronary artery stent placement (Acute) 3.00 x 20 mm Synergy MR ADRIENNE to mLAD 07/01/20 STEMI (ST elevation myocardial infarction) (Acute) Chest pain (Acute) Dyspnea (Acute) You will use the following diet at home:: Cardiac Your food should be the consistency of: Regular Your liquids should be the consistency of: Regular/Thin Discharge Activity: Return to Normal Activity Allergies/Adverse Reactions: Allergies No Known Allergies Allergy (Verified 07/01/20 12:37) Medications to take at Discharge Gabapentin 600 mg PO TID 07/01/20 Oxycodone HCl/Acetaminophen [Oxycodone-Acetaminophen 5-325] 1 ea PO TID 07/01/20 Aspirin E.C. [Ecotrin] 81 mg PO DAILY@0800 tablet 07/03/20 Atorvastatin Calcium [Lipitor] 80 mg PO QHS #30 tab 07/03/20 Carvedilol [Coreg (Beta Tamera)] 6.25 mg PO BID #60 tab 07/03/20 Lisinopril [Zestril] 5 mg PO DAILY #30 tab 07/03/20 Ticagrelor [Brilinta] 90 mg PO BID #60 tab 07/03/20 The following prescriptions were given: Ticagrelor [Brilinta] 90 mg PO BID #60 tab Transmission Status: Pending to [id number] Carvedilol [Coreg (Beta Tamera)] 6.25 mg PO BID #60 tab Transmission Status: Pending to [id number] Atorvastatin Calcium [Lipitor] 80 mg PO QHS #30 tab Transmission Status: Pending to [id number] Lisinopril [Zestril] 5 mg PO DAILY #30 tab Transmission Status: Pending to [id number] Primary Care Physician: Tam Reid III, MD [Primary Care Provider] - Please follow up with your Primary Care Physician in: 1-2 weeks Test Results: Test results from this visit will be discussed in further detail at your follow- up appointment, if applicable. Please Follow Up With: Santos Meng MD When: as directed Proposed Discharge Date: 07/03/20
--- NOTE | 2020-07-03 12:19 | PHA.DC.MC ---
Pharmacy Service has performed discharge medication reconciliation and counseling for this patient. 1. ASPIRIN 81MG PO DAILY 2. ATORVASTATIN 80MG PO QHS 3. CARVEDILOL 6.25MG PO BID 4. LISINOPRIL 10MG PO DAILY 5. TICAGRELOR 90MG PO BID The patient's discharge medication list was reviewed for discrepancies and discrepancies were resolved. Home Medications Gabapentin 600 mg PO TID 07/01/20 Oxycodone HCl/Acetaminophen [Oxycodone-Acetaminophen 5-325] 1 ea PO TID 07/01/20 Aspirin E.C. [Ecotrin] 81 mg PO DAILY@0800 tab 07/03/20 Atorvastatin Calcium [Lipitor] 80 mg PO QHS #30 tab 07/03/20 Carvedilol [Coreg (Beta Tamera)] 6.25 mg PO BID #60 tab 07/03/20 Lisinopril [Prinivil] 10 mg PO DAILY #30 tab 07/03/20 Ticagrelor [Brilinta] 90 mg PO BID #60 tab 07/03/20 The patient was counseled on the following discharge medications and changes in medications for homegoing were reviewed. The Reason for Use, instructions for use, and potential side effects were reviewed for all new medications. The patient's questions regarding all of their medications were answered. The patient was able to verbally demonstrate an understanding of their discharge medications.
--- NOTE | 2020-07-03 13:40 | DS.PCM_ITS ---
<Vinay Osullivan - Last Filed: 07/03/20 13:52> Discharge Date and Diagnosis Date of Admission: 07/01/20 Date of Discharge: 07/03/20 - Primary Discharge Diagnosis Acute Problems: STEMI - Secondary Discharge Diagnosis Chronic Problems: Chronic Problems (Last Updated 07/02/20 @ 14:14 by Bobbi Ramirez) Essential hypertension (Chronic) Hospital Course and Treatment Imaging Results: RAD/Chest 1 View (Portable) IMPRESSION: No acute abnormality is seen. 2D TTE: Interpretation Summary The estimated ejection fraction is 35-40 %. Stage 1 diastolic dysfunction. Hypokinesis of the apex and anterior wall Left Heart Cath: CONCLUSIONS CAD as described. Severe LV dysfunction. EF is 20-25%. No significant or MR. Successful thrombectomy and ADRIENNE to mLAD RECOMMENDATIONS ASA Indefinitley Brilinta for at least 12 months Follow up with primary forestry aide consults: Cardiology - Yusra Operations: None Procedures: 2-D Echocardiogram, Cardiac catheterization Summary of Care Provided: Hospital course: The patient is a 59 year old M with pmhx as above who presented to the ER with c/o chest pain. He came to the ER and was found to have troponin elevation and EKG showing ST elevations in the anterolateral leads. He was taken for heart cath and had a successcul thrombectomy and ADRIENNE placed to the LAD. Echo showed wall motion abnormalities and decreased EF. He was placed on asa, brillinta, st atin, lisinopril, and coreg. He had no further chest pain. He was discharged home in stable condition. He will follow up with cardiology as directed and with his PCP in 1-2 weeks. This patient was seen by Vinay Osullivan PA-C under the supervision of Doctor Mari - Physical Exam Vitals/I&O's: Vital Signs Temp Pulse Resp BP Pulse Ox 98.1 F 60 14 135/81 H 94 07/03/20 09:57 07/03/20 09:57 07/03/20 09:57 07/03/20 09:57 07/03/20 09:57 Oxygen Flow Rate (L/min) 2 Oxygen Delivery Method Room Air Weight: 229 lb 15.074 oz Body Mass Index (BMI) 33.5 Intake and Output for Last 24 Hours 07/01/20 07/02/20 07/03/20 23:59 23:59 23:59 Intake Total 439.29 / 679.29 590 / 590 100 / 100 Output Total 700 / 700 Balance -260.71 / -20.71 590 / 590 100 / 100 Laboratory Results 07/03/20 06:04: WBC 9.9, RBC 4.83, Hgb 15.4, Hct 44.0, MCV 91.1, MCH 31.9, MCHC 35.0, RDW Std Deviation 40.3, RDW Coeff of Angel 12.2, Plt Count 227, MPV 10.4 Discharge Diet: Low fat/ Low Cholesterol, 2000 mg Sodium Diet Discharge Activity: Return to Normal Activity Home Medications: Medications to take at Discharge Gabapentin 600 mg PO TID 07/01/20 Oxycodone HCl/Acetaminophen [Oxycodone-Acetaminophen 5-325] 1 ea PO TID 07/01/20 Aspirin E.C. [Ecotrin] 81 mg PO DAILY@0800 tab 07/03/20 Atorvastatin Calcium [Lipitor] 80 mg PO QHS #30 tab 07/03/20 Carvedilol [Coreg (Beta Tamera)] 6.25 mg PO BID #60 tab 07/03/20 Lisinopril [Prinivil] 10 mg PO DAILY #30 tab 07/03/20 Ticagrelor [Brilinta] 90 mg PO BID #60 tab 07/03/20 Following Prescriptions Were Given to Patient: Ticagrelor [Brilinta] 90 mg PO BID #60 tab Transmission Status: Received by [id number] Carvedilol [Coreg (Beta Tamera)] 6.25 mg PO BID #60 tab Transmission Status: Received by [id number] Atorvastatin Calcium [Lipitor] 80 mg PO QHS #30 tab Transmission Status: Received by [id number] Lisinopril [Prinivil] 10 mg PO DAILY #30 tab Transmission Status: Received by [id number] Primary Care Physician: Tam Reid III, MD [Primary Care Provider] - Please follow up with your Primary Care Physician in: 1-2 weeks Please Follow Up With: Santos Meng MD When: as directed Disposition: Home Minutes spent on discharge:: 35 Patient Condition:: Stable Medical Necessity - Tobacco Use Smoking Status: Former smoker Meaningful Use Info Meaningful Use Diagnoses (Choose all that apply): AMI - AMI/Post PCI/Angioplasty Aspirin given w/in 24hrs of arrival?: Yes ASA at discharge?: Yes Statins at discharge?: Yes Nestor/ARB at discharge?: Yes Beta Tamera at discharge?: Yes Done w/ Acute [place] measure.: Yes Documented LVEF (%): 35 <RigolorrainegaryKatelyn - Last Filed: 07/04/20 12:46> Discharge Date and Diagnosis - Secondary Discharge Diagnosis Chronic Problems: Chronic Problems (Last Updated 07/02/20 @ 14:14 by Bobbi Ramirez) Essential hypertension (Chronic) Hospital Course and Treatment Summary of Care Provided: The patient is a 59 year old M with past medical history of hypertension who was admitted with midsternal chest pain started 1 day prior to admission and was associated with some leg swelling and shortness of breath. She was seen in the emergency room and an initial EKG did not show acute STEMI. Subsequent EKG showed anterolateral ST segment elevation. Had emergent cardiac catheterization which showed 100% occlusion of the mid LAD. He was treated with thrombectomy and drug eluding stents placement. Patient was monitored further in the ICU. He continued to remain stable and was transferred to the PCU. He had a 2D echo done showed an EF of 35 to 40% with stage I diastolic dysfunction. There was hypokinesis of the apex and anterior wall. He was managed on aspirin, Brilinta, statin, lisinopril, Coreg. He will follow-up with cardiology and cardiac rehab. On the day of discharge, patient was seen and examined. Denied any new complaints. Physical exam: General: Alert, Cooperative, No apparent distress, Well developed, Well nourished HEENT: Atraumatic, Normocephalic Oral: Moist Mucosa, No Gingival or Mucosal Lesions/ Ulcerations Neck: No Nodes, Thyroid Normal Size and Texture Lungs: Clear to auscultation, Normal air movement, No rhonchi, No wheeze, No rales Cardiovascular: Regular rate, Regular Rhythm, Normal S1, Normal S2, No murmurs Abdomen: Bowel Sounds Present, Soft, Non Tender, Non-Distended, No Hepato- splenomegaly Extremities: No edema, Capillary Refill Less than 3 Seconds, No Calf Tenderness Skin: No rashes, No breakdown Musculoskeletal: No Tenderness to Palpation of Joints or Extremities Neurological: Sensory exam intact to light touch and pain, - - No clonus Psych/Mental Status: Normal Affect, Appropriate - Physical Exam Vitals/I&O's: Vital Signs Temp Pulse Resp BP Pulse Ox 98.1 F 60 14 135/81 H 94 07/03/20 09:57 07/03/20 09:57 07/03/20 09:57 07/03/20 09:57 07/03/20 09:57 Oxygen Flow Rate (L/min) 2 Oxygen Delivery Method Room Air Weight: 104.3 kg Body Mass Index (BMI) 33.5 Intake and Output for Last 24 Hours 07/02/20 07/03/20 07/04/20 23:59 23:59 23:59 Intake Total 590 / 590 100 / 100 Balance 590 / 590 100 / 100 Inpatient E&M: [id number] Disch Hosp
== END 2020-07-03 12:52 | disposition home or self-care (01) | DRG 247 ==
LOC: ED 12:56 → ICU 14:01 → PCU 07-02 15:19
PROVIDERS: Admitting Provider Specialist; Emergency Provider Emergency Medicine; PCP Family Medicine; Referring Provider Specialist; Visit Provider Internal Medicine
DX: I21.02 ST elevation (STEMI) myocardial infarction involving left anterior descending coronary artery (principal); N17.9 Acute kidney failure, unspecified; I21.09 ST elevation (STEMI) myocardial infarction involving other coronary artery of anterior wall; I25.10 Atherosclerotic heart disease of native coronary artery without angina pectoris; I25.5 Ischemic cardiomyopathy; I10 Essential (primary) hypertension; Z87.891 Personal history of nicotine dependence; Z82.49 Family history of ischemic heart disease and other diseases of the circulatory system
CPT/HCPCS: 36415; 71045; 80048; 80053; 83735; 84484; 85025; 85027; 85730; 92941; 93005; 93306; 93454; 97802; 99152; 99153; 99285; C1757; J7030; J7040; Q9957; A4216; C1725; C1769; C1874; C1887; C1894; C8929; C9606; J1327; Q9967

== ENCOUNTER → 2020-07-23 12:45 | Outpatient (CLI) | payer BC, SELFPAY ==
[2020-07-01 14:06] VITALS: BMI 33.5
--- NOTE | 2020-07-23 12:51 | PCM.CR.HP2 ---
CR - History & Physical - General Arrival date:: 07/23/20 Arrival time:: 12:53 Date of Referral:: 07/01/20 Date of CR Evaluation:: 07/23/20 Referring Physician: Dr. Santos Meng Primary Diagnosis: Z95.5 PCI with coronary stent - History of Present Cardiac Event Onset Date: Enter Onset Date of cardiac illnesses in Comment field below PTCA or coronary stenting:: Yes - 07/01/2020 - Medications Home Medications: Ambulatory Orders Medication Instructions Recorded Oxycodone HCl/Acetaminophen 1 ea PO TID 07/01/20 [Oxycodone-Acetaminophen 5-325] Aspirin E.C. [Ecotrin] 81 mg PO DAILY@0800 tab 07/03/20 Atorvastatin Calcium [Lipitor] 80 mg PO QHS #30 tab 07/03/20 Carvedilol [Coreg (Beta Tamera)] 6.25 mg PO BID #60 tab 07/03/20 Lisinopril [Prinivil] 10 mg PO DAILY #30 tab 07/03/20 Ticagrelor [Brilinta] 90 mg PO BID #60 tab 07/03/20 gabapentin 600 mg tablet 600 mg PO TID tab 07/14/20 - Allergies Allergies/Adverse Reactions: Allergies No Known Allergies Allergy (Verified 07/14/20 11:12) - Sleep Disorder Evaluation Hx of Sleep Apnea: No Do you snore loudly (louder than talking or can be heard through closed doors)?: Yes - pt declines Do you often feel tired/ fatigued/ sleepy during daytime?: No Has anyone observed you stop breathing during sleep?: No History of Hypertension (for STOP score): Yes STOP Results: Positive Advanced Directives - Advanced Directives Power of On Site Services Specialist: Yes Living Will: No Advance Directives Information Provided: No Advance Directives on File: No DNR Order?:: No Past Medical History - Covid-19 Screening Fever: No Unexplained muscle aches: No Current respiratory symptoms: No Upper respiratory infections symptoms: No Gastro-intestinal symptoms: No [id number] symptoms: No Has tested positive for COVID-19 in last 30 days: No Had contact w/person w/symptoms or Covid-19 (+) last 14 days: No Has High Risk Exposures ID'd by Health dept/Inf Control team: No 65 years or older:: No Lives in Assisted Living facility:: No Has a chronic lung disease or moderate to severe asthma:: No Has a serious heart condition:: Yes Immunocompromised:: No Severely obese (Body Mass Index of 40 or higher):: No Diabetic:: No Has chronic kidney disease undergoing dialysis:: No Has liver disease:: No - Past Medical Illness Medical History: Past Medical History (Last Reviewed 07/14/20 @ 11:[address] Santos Meng MD) Atherosclerosis of coronary artery of [place] heart without angina pectoris (Chronic) I25.10 Essential hypertension (Chronic) I10 STEMI (ST elevation myocardial infarction) (Acute) I21.3 DDD (degenerative disc disease) - Past Surgical History Surgical History: Past Surgical History (Last Reviewed 07/14/20 @ 11:[address] Santos Meng MD) History of coronary artery stent placement (Chronic) Z95.5 3.00 x 20 mm Synergy MR ADRIENNE to mLAD 07/01/20 History of rotator cuff surgery Z98.890 left History of tonsillectomy Z90.89 - Family History Summary Family History: Family History (Last Reviewed 07/14/20 @ 11:[address] Santos Meng MD) Father , 50 Heart disease Myocardial infarction Brother , 57 Myocardial infarction Heart disease Brother , 58 Myocardial infarction Heart disease Social History - Smoking History Smoking Status: Former smoker Years Smokin Packs Smoked per Day: 1 Hx Smoking Cessation Date: 10/31/16 Hx Tobacco Use: Yes - Alcohol Use Alcohol Usage: Yes - Substance Abuse Hx Substance Use: Yes - Occupation Occupation (List type of work in comments):: Employed Hours worked per day:: 8 - Hobbies, Recreation, Social Activities Hobbies: Woodworking Recreational Activities: I am able to engage in all my recreational activities Social Environment - Status Marital Status: - Current Living Arrangements Living Environment:: Spouse - Children How many children do you have?: 4 Do any of your children live nearby?: Yes - Safety Do you feel safe in your surroundings?: Yes - Assistance Do you need any assistance at home?: none Review of Systems - Review of Systems Hints: Right click = Denies (Slash). Left click = Reports ([place]) Review of Present Symptoms: Reports: Shortness of Breath at Rest, Fatigue, Appetite - Special Diet, Sleep - Normal. Denies: Shortness of Breath with Exertion, PVD, Operative Discomfort, Wound Healing, Dizziness/Lightheadedness, Heart Arrhythmia/Irregularities, Appetite - Normal, Sexual Changes - Pain Is Patient Pain Free?: Yes Pain Location: none Risk Factor Assessment - Vital Signs Pulse Ox: 98 Blood Pressure: 124/80 - Pulse Pulse Rate: 51 Pulse Rhythm: Regular - Hypertension How long have you been treated?: 10 years - Stress Stress: Work-related - Obesity Height: 5 ft 10 in Weight:: 103.873 kg Weight in Pounds: 229.0 lbs Body Mass Index (BMI): 32.8 Nutritional Referral for Obesity: No - Physical Inactivity Physical Inactivity: Reg Exercise 30 min/day - Risk Stratification Risk Guidelines: Moderate Risk: Risk Factor for Smoking, Risk Factor for Dyslipidemia, Risk Factor for Diabetes, Risk Factor for Obesity, Risk Factor for Hypertension, Risk Factor for Sedentary Lifestyle, Risk Factor for Depression - For Smoking Smoking Risk Guidelines: Smoking Low Risk: None or quit greater than 6 months ago. Smoking Moderate Risk: Smoker or quit 6 months or less ago. Smoking High Risk: Smoker - For Dyslipidemia Dyslipidemia Risk Guidelines: Low Risk: Moderate Risk: High Risk: 15-25% fat 25.1-29% fat >/= 30% fat. <7% sat fat 7-9% sat fat >9% sat fat. <150 mg chol 150-299 mg chol >/= 300 mg chol. LDL <100 LDL 100-129 LDL >/= 130. Chol/HDL ratio <5.0 Chol/HDL ratio 5.0-6.0 Chol/HDL ratio >6.0. Triglycerides <100 Triglycerides 100-149 Triglycerides >/= 150 - For Diabetes Mellitus Diabetes Risk Guidelines: Diabetes Low Risk: HgA1c <6.5% and/or FBG <120. Diabetes Moderate Risk: HgA1c 6.6-7.9% and/or FBG 120-180. Diabetes High Risk: HgA1c >/= 8% and/or FBG >180 - For Obesity/Overweight Obesity/Overweight Risk Guidelines: Obesity Low Risk: BMI <25.0. Obesity Moderate Risk: BMI 25-29.9. Obesity High Risk: BMI >/= 30.0 - For Hypertension Hypertension Risk Guidelines: Hypertension Low Risk: Systolic <120 and Diastolic <80. Hypertension Moderate Risk: Systolic 120-139 and Diastolic 80-89. Hypertension High Risk: Systolic >/= 140 and Diastolic >/= 90 - For Sedentary Lifestyle Sedentary Lifestyle Risk Guidelines: Sedentary Lifestyle Low Risk: >/= 1,500 kcal/week. Sedentary Lifestyle Moderate Risk: 700-1,499 kcal/week. Sedentary Lifestyle High Risk: < 700 kcal/week - For Depression Depression Risk Guidelines: Depression Low Risk: Not clinically depressed. Depression Moderate Risk: Mildly depressed. Depression High Risk: Clinically depressed - Family History Family History: Family History (Last Reviewed 07/14/20 @ 11:[address] Santos Meng MD) Father Heart disease Myocardial infarction Brother Myocardial infarction Heart disease Brother Myocardial infarction Heart disease Motivation - Motivation to Participate On a scale of 1 to 10, how prepared are you to commit to attending program?: 8 What do you see as barriers to successfully being able to complete the program?: none What do you see as the benefits of succesfully completing the program? In other words, what do you hope to get out of participating in the program?: improved health Are there issues you are dealing with that will interfere with completing the program?: none Do you have a spouse or signficant other, family or friends who will help support you to complete the program?: family
--- NOTE | 2020-07-23 12:52 | PCM.CR.ITP ---
Diagnosis - General Information Admitting Diagnosis: Z95.5 PCI with coronary stent Personal Learning Style:: Audio/Visual Barriers to Learning: No Barriers Gave educational material for:: Treating Heart Disease, Emotions & Heart Disease, Stress Management & Relaxation, Sleep Disorders & Heart Disease, How The Heart Works, What it means to have Heart Disease, How Coronary Artery Disease is Diagnosed, Heart Procedures, What Heart Medications Do, Risk Factors & Modifications, Living an Active Life, Nutrition - Education/Goals Cardiac Rehabilitation Goals: 1. Maintain the individual as the primary focus of care. 2. To improve the patient's quality of life. 3. Identification of cardiac risk factors and provide cardiac risk factor management. 4. Enhance the psychosocial status of the patient. 5. Reconditioning enough to allow the patient to resume customary activities. 6. Control symptoms of cardiac disease Personal Goals: Initial Assessment: Improve energy level, Improve muscle strength and endurance, Improve diet and eating habits (eat healthier) Scale for measuring improvement of personal goals: Enter appropriate number in Comments. 2 = Unchanged. 3 = Slightly Better. 4 = Moderate Improvement. 5 = Met my Goal - Diagnosis & Disease Process 30 day Reassessments:: Not Met 30 day Reassessments:: Not Met 30 day Reassessments:: Not Met 30 day Reassessments:: Not Met Final Reassessments:: Not Met - Safety Referral to Physical Therapy: No Referral to [facility] Case Management: No Fall Risk Assessed:: Yes Assistive Devices:: None Exercise - Initial Assessment - Visit Date of Eval: 07/23/20 - initial eval Mets: Pre-: >7 METS for 30 minutes by discharge - Physician Prescribed Exercise Modalities: Treadmill, Biodyne, Rower, Airdyne, NuStep, SciFit Frequency: 3x/week for 12 weeks [36 sessions] Intensity: 60-80% of age predicted maximum heart rate reserve Current METSs:: 3.5 Target Heart Rate:: 104-136 Resting Blood Pressure: 124/80 EKG Type: SR - Outcomes & Goals Goals:: Verbalizes understanding of THR, RPE & goal METS by session 6, Documents in home exercise log/reports 30 min aerobic 5 day/wk by DC, Demonstrates accurate pulse taking by DC, Other additional outcome/goals: see below - Intervention & Plan Exercise Program Goals: Instruct on personal THR & RPE, Instruct on MET level & personal MET goal, Show patient to take own pulse /validate performance until accurate, Instruct on home exercise, Other additional plan/int - Physical Activity Home Exercise Physical Activity - Home Exercise: Safe Exercise, Warm-up, Self-monitoring, Cool-Down, Home Exercise > 30 min Daily, Sitting Time <3 hours/daily - Outcomes & Goals Outcomes/Goals: Demonstrates correct Warm-up/exercise Cool-Down (S3) if = 2.5 METs, Verbalizes symptoms of exercise intolerance by Session 3 (S3), Demonstrate safe equipment use (S3) & follows exercise prescrition (6), Other: See below - Intervention & Plan Plan/Intervention: Instruct warm-up & cool-down if exercising at > 2 METs, Instruct on symptoms of exercise intolerance & actions to take, Instruct & monitor on saf, Assess intial functional capacity & safety risk, Other See below Nutrition - Initial Assessment - Program Goals Nutrition Program Goals: LDL <100 optimal. 100 - 129 Near optimal. 130 - 159 Borderline High. 160 - 189 High. Total Cholesterol <200 desirable. 200 - 239 Borderline High. >/= 240 High. HDL < 40 Low >/=60 High. Triglycerides <150 desirable. <199 optimal. VlDL 5 - 40. HgbA1C <7%. BMI <25 Patient has diagnosis of Hyperlipidemia (ICD E78)?: Yes - Visit Date of Assessment:: 07/23/20 - initial eval - Cholesterol/Lipids Determine presence & major risk factors that modify LDL goal: Cigarette smoking, Hypertension or hypertensive medication, Low HDL cholesterol <40 mg/dL*, Family history of premature CHD in Male < 55 years: female <65 yearsFa, Age men > 45 years; women >/= 55 years Outcomes/Goals: Pt IDs own risk factors & lifestyle modifications by Session 10, Verbalizes symptoms of angina & response by session 3., Pt independently manages, Other Additional Outcomes/Goals: Intervention/Plan: Advocate for lipid panel cholesterol medication if applicable, Instruct on personal lipid levels & lipid goals/NCEP guidelines, Instruct on cholesterol, Other additional plan/int Referral to dietitian:: No - pt declines - Diabetes (Other Core Measures) Diabetes Type: Not Applicable - Weight Mgt (Other Care) Height: 5 ft 10 in Weight:: 103.873 kg BMI: 32.8 Diagnosis Overweight/Obesity BMI> 30% ICD-10 E66: Yes Diagnosis High BMI/Morbid Obesity BMI> 35% ICD-10 Z68: No Outcomes/Goals: Pt sets, maintains & shows weight loss goal & trend during rehab, Other additional outcomes/goals Intervention/Plan: Instruct on ideal BMI & set weight loss goal w/patient, Assist pt to ID & incorporate diet changes for weight loss by S9, Refer to Structured Weight Loss program as appropriate, Encourage goal of using 250-300dcal per session for weight loss, Other additional plan/interventions - Healthy Eating Habits Will attend diet classes:: Yes Outcomes/Goals:: Consume diet rich in vegs,fruits,whole grain/high fiber,fish,lean meat, Limit sat/trans fats,cholesterol & added salts & sugars, Other additional outcome/goals: Intervention/Plan:: Assess current eating habits, Other Additional plan/interventions - Education Gave educational materials for:: Signs & symptoms of hypoglycemia, Signs & symptoms of hyperglycemia, Relate diabetes to coronary artery disease, Healthy eating Medical - Initial Assessment - Visit Date of Eval: 07/23/20 - initial eval - Medication Compliance Preventative Medication(s):: Aspirin, Beta rocky H/O mental health issues: depression, anxiety, or addiction?: No Doesn?t believe in the benefits of treatment?: No Believes medications are unnecessary or harmful?: No Has a concern about medication side effects?: No Expresses concern over the cost of medications?: No Outcomes/Goals: Verbalizes medications,desired effect & common side effects @ DC, Pt self-reports following medication regimen, Keeps card in wallet w/medications listed by DC, Other additional outcome/goals: Interventions/plans: Instruct on medication effects & side effects, Review medication list w/patient every two weeks, Instruct importance of taking meds as ordered & assist problem solving, Other additional - Tobacco Use Tobacco Use: Non-smoker - stopped 3 years ago Do you use smokeless tobacco?: No Interventions/plan: Instruct on effects of smoking & provide smoking cessation resource, Assist pt to set quit date & provide encouragement, Assist pt to develop strategies to achieve/maintain quit date, Assist pt w/nicotine replacement & medication for cessation success, Other additional plan/interventions - Hypertension Hypertension Diagnosis:: Hypertension ICD-10 I10 [place] [employer] Hypertension Guidelines: [place] [employer] Hypertension Guidelines. Normal BP Less than 120/80. Elevated BP 120/80. Hypertension Stage 1: BP 130-139/80-89. Hypertesnion Stage 2: BP 140 or higher/90 or higher. Hypertension Crisis: BP higher than 180/120 Outcomes/Goals: Able to verbalize/achieve optimal blood pressure <130/80, Incorporates diet changes & exercise for blood pressure control by DC, Other additional outcomes/goals Interventions/plan: Instruct on optimal blood pressure, hypertension & medications, Instruct on effects of sodium, alcohol, stress, exercise &hypertension, Other additional plan/interventions - Tobacco Cessation Referral Smoking Cessation Referral:: No Individual Education/Counseling:: No Education Schedule Given:: Yes Psychosocial - Initial Assess - VIsit Date of Eval: 07/23/20 - initial eval History of previous Mental disease:: No - Target Goals Target Goals: Assess presence or absence of depression. Using a valid screening tool, maximizes coping skills. Positive support system - Psychosocial Test Tool Used:: [place] QOL Cardiac, PHQ-9 Questionnaire phq-9 Severity: Severity. 1-4 Minimal Depression. 5-9 Mild Depression. 10-14 Moderate Depression. 15-19 Moderately Sever Depression. 20-27 Severe Depression. Rule: - Referral to Behavioral Health PS - Interventions: Yes Attend Stress Management Classes, No Referral to Behavioral Health if PHQ-9 score >9:, No Referral to [facility], No Referral to Physician if PHQ-9 if score is 5-9: - Outcomes/Goals: See list Psychosocial Outcomes/Goals:: ID's personal stressors & 2 strategies to manage stress by discharge, Other Additional outcome/goals: - Intervention/Plan: See List Interventions/Plan:: Assess stressors,coping strategies & signs of derpression on admission, Instruct/assist pt to develop coping & personal stress Mgt strategies, Refer to Behavioral Health if appropriate, Refer to Physician if appropriate, Instruct patient to recognize signs & symptoms of depression, Instruct patient to recog, Other additional plan/intervention Patient Health Questionnaire Initial Assessment 1. Little interest or pleasure in doing things: Not at all 2. Feeling down, depressed, or hopeless: Several days 3. Trouble falling or staying asleep, or sleeping too much: Several days 4. Feeling tired or having little energy: Several days 5. Poor appetite or overeating: Not at all 6. Feeling bad about yourself -- or that you are a failure or have let yourself or your family down: Several days 7. Trouble concentrating on things, such as reading the newspaper or watching television: Not at all 8. Moving or speaking so slowly that other people could have noticed. Or the opposite - being so fidgety or restless that you have been moving around a lot more than usual: Not at all 9. Thoughts that you would be better off , or of hurting yourself in some way: Not at all How difficult have these problems made it for you to do your work, take care of things at home, or get along with other people?: Somewhat difficult Total Score: 4 [place]-Q SV Test - Statements CAD is a disease of the arteries in the heart: True Examples of risk factors for heart disease: True Angina is chest pain or discomfort: True The benefits of resistance training include: True Eating more meat and dairy products: False Anti-platelet medications such as aspirin are important: True The only effective way to manage stress: False An exercise warm-up slowly increases heart rate: True Prepared, processed foods usually have high sodium: True Depression is common after a heart attack: True The statin medications lower cholesterol: True To control blood pressure, lower the amount of sodium: True If someone gets chest discomfort during walking: False Transfats are partially hydrogenated vegetable oils: True Sleep apnea that is not treated increases the risk: False To control cholesterol, one should become a vegetarian: False Someone knows if he/she is exercising at the right level: True Diabetes cannot be prevented with exercise & health eating: False Stress is a large risk for heart attack: True A diet that can help lower blood pressure is rich in: True - Total Score Total Correct Responses: 19 Self-Efficacy Initial Assessment We would like to know how confident you are in doing certain activities. Please select your confidence level for:: Select your confidence level for the following using the scale 1-10 where 1 is not at all confident and 10 is totally confident. Your score is the average of all 6 responses. Fatigue: How confident are you that you can keep the fatigue caused by your disease from interfering with the things you want to do? Select Number: 10 Physical Discomfort or Pain: How confident are you that you can keep the physical discomfort or pain of your disease from interfering with the things you want to do? Select Number: 7 Emotional Distress: How confident are you that you can keep the emotional distress caused by your disease from interfering with the things you want to do? Select Number: 5 Other Symptoms or Health Problems: How confident are you that you can keep other symptoms or health problems from interfering with the things you want to do? Select Number: 6 Different Tasks and Activities: How confident are you that you can do the different tasks and activities needed to manage your health condition so as to reduce your need to see a doctor? Select Number: 10 Medication: How confident are you that you can do things other than just taking medication to reduce how much your illness affects your everyday life? Select Number: 10 Total Score:: 8 Nutrition Survey - Nutrition Survey Instructions Scoring Instructions: Scoring is as follows: Yes = 1 points. No = 0 point. Patient score that is >/=12 is considered to be at potential nutritional risk and could benefit from a referral to a registered dietitian. - Nutrition Survey Initial Have you lost >10 lbs over the past 2 months without trying?: Yes Are you following a special diet at home for diabetes, low fat, or low salt?: Yes Are you interested in meeting with a dietitian for help understanding your diet?: No Do you eat less than 3 meals a day?: No Do you eat fatty meats (dixon, sausage, ribs, etc), fried foods, desserts, large amounts of salad dressings, margarine, butter, or cheese most days?: Yes Do you have food allergies? [Enter types in comment field]: No Do you eat in restaurants more than 3 times a week?: No Do you season food with salt, seasoning salt, or garlic salt?: No Do you used canned, boxed, frozen meals, or soups, seasoning packets?: No Total Score:: 3
[2020-07-23 14:16] VITALS: BP 124/80; PULSE 51; O2SAT 98; BMI 32.8
[2020-07-23 14:17] VITALS: BP 124/80; BMI 32.8
== END ==
PROVIDERS: PCP Family Medicine; Referring Provider Specialist; Visit Provider Specialist
DX: I25.10 Atherosclerotic heart disease of native coronary artery without angina pectoris (principal); Z95.5 Presence of coronary angioplasty implant and graft; I25.2 Old myocardial infarction; I10 Essential (primary) hypertension; Z79.82 Long term (current) use of aspirin; Z79.899 Other long term (current) drug therapy

== ENCOUNTER 2020-07-30 11:01 | Outpatient (RCR) | payer BC, SELFPAY ==
[2020-07-23 14:06] VITALS: BMI 32.8
== END 2020-07-30 23:59 ==
LOC: CR 11:01
PROVIDERS: PCP Family Medicine; Referring Provider Specialist; Visit Provider Specialist
DX: I25.10 Atherosclerotic heart disease of native coronary artery without angina pectoris (principal); Z95.5 Presence of coronary angioplasty implant and graft; I25.2 Old myocardial infarction
CPT/HCPCS: 93798

== ENCOUNTER 2020-08-08 10:15 | Outpatient (RCR) | payer BC, SELFPAY ==
[2020-07-23 14:16] VITALS: BMI 32.8
[2020-07-23 14:17] VITALS: BMI 32.8
== END 2020-08-30 23:59 ==
LOC: CR 10:15
PROVIDERS: PCP Family Medicine; Referring Provider Specialist; Visit Provider Specialist
DX: I25.10 Atherosclerotic heart disease of native coronary artery without angina pectoris (principal); I25.2 Old myocardial infarction; Z95.5 Presence of coronary angioplasty implant and graft
CPT/HCPCS: 93798

== ENCOUNTER → 2020-10-09 08:51 | Outpatient (CLI) | payer BC, SELFPAY ==
[2020-07-23 14:16] VITALS: BMI 32.8
[2020-07-23 14:17] VITALS: BMI 32.8
--- NOTE | 2020-10-09 08:53 | ECHOCS_ITS ---
Reason For Study: CHF Procedure This was a 2D Doppler, Color Flow transthoracic echocardiogram. Contrast injection was performed. Exam performed in department. Left Ventricle Normal LV size. The estimated ejection fraction is 55 %. No evidence for diastolic dysfunction. Septal [place] : Mildly hypokinetic. Right Ventricle Normal RV size. Normal systolic function. Atria Normal left atrium. Normal right atrium. No doppler evidence for ASD. Mitral Valve There is no mitral valve stenosis. Mild (1+) mitral valve insufficiency. Tricuspid Valve There is no tricuspid stenosis. Unable to estimate RV systolic pressure due to inadequate jet, pulmonary artery pressure probably normal. Aortic Valve Trisinus/trileaflet aortic valve. There is no aortic stenosis. No aortic valve insufficiency. Pulmonic Valve There is no pulmonic valvular stenosis. Trivial pulmonic valve insufficiency. Great Vessels Normal aortic root. Pericardium/Pleural No pericardial effusion. Medication Diluted definity 2ml given slow IV push to enhance endocardial definition. MMode/2D Measurements & Calculations LVIDd: 5.3 cm IVSd: 1.2 cm Ao root diam: 2.6 cm LVIDs: 3.3 cm LVPWd: 1.2 cm RVDd: 4.0 cm FS: 37.1 % LAV(MOD-bp): 56.3 ml LVAd ap4: 33.8 cm2 SV(MOD-sp4): 60.8 ml LAV(MOD-bp) Indexed: 25.9 ml/m2 EDV(MOD-sp4): 107.4 ml LAV(MOD-sp2): 65.2 ml EDV(sp4-el): 111.0 ml LAV(MOD-sp4): 44.3 ml LVAs ap4: 20.0 cm2 ESV(MOD-sp4): 46.6 ml ESV(sp4-el): 46.8 ml EF(MOD-sp4): 56.7 % EF(sp4-el): 57.8 % SV(sp4-el): 64.2 ml LA A4 area: 16.6 cm2 LA dimension(2D): 4.8 cm RA A4 area: 14.4 cm2 Doppler Measurements & Calculations MV E max nathaniel: 52.1 cm/sec Lat Peak E' Nathaniel: 8.3 cm/sec Med Peak E' Nathaniel: 4.8 cm/sec MV A max nathaniel: 64.2 cm/sec E/E' lat: 6.3 E/E' med: 10.9 MV E/A: 0.81 Ao V2 max: 128.9 cm/sec LV V1 max: 109.8 cm/sec PA V2 max: 94.4 cm/sec Ao max P.6 mmHg LV V1 max P.8 mmHg Ao V2 mean: 85.5 cm/sec Ao mean P.3 mmHg Ao V2 VTI: 28.2 cm Interpretation Summary The estimated ejection fraction is 55 %. Septal [place] : Mildly hypokinetic No evidence for diastolic dysfunction. Mild (1+) mitral valve insufficiency. Ordering Physician: Santos Meng Referring Physician: Tam Reid Performed By: Nicole Estevez, SEDRICK, RVT
== END ==
PROVIDERS: PCP Family Medicine; Referring Provider Specialist; Visit Provider Specialist
DX: I25.10 Atherosclerotic heart disease of native coronary artery without angina pectoris (principal); I11.0 Hypertensive heart disease with heart failure; I50.9 Heart failure, unspecified; Z95.5 Presence of coronary angioplasty implant and graft
CPT/HCPCS: 93306; Q9957; A4216; C8929

== ENCOUNTER 2020-11-05 10:54 | Emergency (ER) | payer BC, SELFPAY ==
[2020-07-23 14:17] VITALS: BMI 32.8
[2020-10-29 13:08] VITALS: BMI 33.0
[2020-11-05 10:55] VITALS: BP 162/93; PULSE 49; RESP 18; TEMP 36.6; O2SAT 98; BMI 31.5
--- NOTE | 2020-11-05 11:09 | ED.VIS.GEN ---
History of Present Illness Chief Complaint: Laceration Informant: Patient Narrative: Patient is a 60-year-old male with a past medical history of CAD who presents to the emergency department for laceration to right index finger. He cut it on a table saw just prior to arrival in the ED. Bleeding is controlled prior to arrival. He had previously injured that finger and cut off the tip which was able to be repaired previously. He does have some chronic issues with that nail. He does have some chronic issues with sensation of that finger. He denies any changes with the sensation now. He denies any other injury. He is on Brilinta and aspirin. Past Medical History - Allergies and Home Meds Allergies/Adverse Reactions: Allergies No Known Allergies Allergy (Verified 11/05/20 10:57) Primary Care Physician: Tam Reid III, MD [Primary Care Provider] - 7 Days for suture removal Prior records reviewed: Yes Past Medical History: - - CAD Smoking Status: Former smoker - Family History Paternal Family History: Family History (Last Reviewed 10/29/20 @ 14:[address] Santos Meng MD) Father Heart disease Myocardial infarction Brother Myocardial infarction Heart disease Brother Myocardial infarction Heart disease Family History: Reports: Heart Disease Review of Systems All systems negative except as indicated General: Denies: Chills, Fever ENT: Denies: Rhinorrhea, Sore throat Cardiovascular: Denies: Chest pain, Palpitations Respiratory: Denies: Dyspnea, Cough, Dyspnea on exertion Gastrointestinal: Denies: Abdominal pain, Nausea, Vomiting Musculoskeletal: Reports: Extremity Pain. Denies: Back pain Skin: Reports: Wounds. Denies: Rash Neurological: Denies: Headache, Weakness, Numbness Hematologic: Denies: Easy bruising, Easy bleeding Physical Exam Vital Signs/Narrative: Vital Signs Temp Pulse Resp BP Pulse Ox 11/05/20 10:55 97.9 F 49 L 18 162/93 H 98 Inital Vital Signs reviewed: Yes General: Well nourished, Well developed, No Acute Distress Head: Normocephalic, Atraumatic Eyes: Perrl, EOMI ENT: No rhinorrhea Neck: Supple, Nontender Cardiovascular: Bradycardia Respiratory: No distress, CTA bilaterally Abdomen: Soft, Nontender Back: Nontender Extremities: Nontender, No edema, - - Full range of motion of the finger. Brisk capillary refill. Sensation intact. Skin: Normal color, No rash, - - The tip of the right index finger is macerated with 2cmx1.5cm avulsion. There is a skin flap but half of the laceration is missing tissue. No active bleeding. No foreign body appreciated. Neurological: Alert, Oriented x3, Normal Strength, Normal Sensation Psychological: Normal affect, Normal Mood Diagnostic/Tx/Re-eval - Medical Decision Making Patient presents to the ED for laceration to right index finger. This was done by using a table saw. He is not sure when his last tetanus shot was and this will be updated. Patient's tetanus is updated. Using digital block the wound was irrigated with normal saline and cleaned with chlorhexidine. Using 4 sutures I was able to tack down the skin flap but still large area of skin is missing. Antibiotic ointment was applied to this area and nonadherent dressing placed over that. He will need to monitor for evidence of infection. Sutures will need to be removed in 7 to 10 days. He needs to have a wound check prior to that as well by his PCP. Strict return precautions were discussed with him. He understands and is agreeable this plan. Discharged home in stable condition. All questions were answered. Procedures Procedure(s): Laceration repair: Informed consent was obtained before procedure started. The appropriate timeout was taken. The area was prepped and draped in the usual sterile fashion. Local anesthesia was achieved using 5cc of lidocaine 1% without epinephrine. The wound was copiously irrigated. 4 5-0 Ethilon/Nylon simple interrupted sutures were placed. There was a lot of missing tissue so partly it was not able to be closely approximated. Antibiotic ointment and dressing was applied to the area and anticipatory guidance, as well as standard post procedure care, was explained. Return precautions are given. The patient tolerated the procedure well without any apparent complications. Follow-up visit set for suture removal and evaluation of laceration. ED Disposition - Plan for ED Patient: Disposition: Home or Assisted Living Diagnosis: Finger laceration Instructions: ED Laceration: All Closures Referrals: Tam Reid III, MD [Primary Care Provider] - 7 Days for suture removal
[2020-11-05] MEDS: Diphth,Pertuss(Acell),Tet Vac 0.5 ML Vial IM (11:23)
--- NOTE | 2020-11-05 11:42 | ED.RN ---
DR. VILLEDA AT BEDSIDE FOR LACERATION REPAIR.
--- NOTE | 2020-11-05 13:02 | ED.RN ---
DISCHARGE INSTRUCTIONS GIVEN TO AND REVIEWED WITH PATIENT, PATIENT DENIES QUESTIONS OR CONCERNS AND VOICES UNDERSTANDING OF DISCHARGE INSTRUCTIONS GIVEN TO AND REVIEWED WITH PATIENT DENIES QUESTIONS OR CONCERNS AND VOICES UNDERSTANDING OF DISCHARGE INSTRUCTIONS. PT AMBULATES OUT OF ROOM WITHOUT DIFFICULTY.
--- NOTE | 2020-11-05 19:21 | ED.VIS.GEN ---
History of Present Illness Chief Complaint: Laceration Informant: Patient Prior similar symptoms: Yes Recent Illness/Hospitalization: No - Past Medical History (1) LV dysfunction Status: Chronic Comment: Patient appears to be having some degree of anxiety as well. He was advised to follow-up with his primary care physician for that. If he continues to have shortness of breath after 1 month of his PCI then we will switch from Brilinta to Plavix to see if this helps. At this time we will continue current medications. I think he will benefit from going through the full course of rehab and for this reason will be reasonable for him to be off work for 12 weeks after his acute CO.Since he has LV dysfunction we will also check a 2D echo in 3 months and follow-up in 4 months.15 minutes spent in this medical discussion/patient encounter (2) Atherosclerosis of coronary artery of [place] heart without angina pectoris Status: Chronic (3) Essential hypertension Status: Chronic (4) History of coronary artery stent placement Status: Chronic Comment: 3.00 x 20 mm Synergy MR ADRIENNE to mLAD 07/01/20 (5) STEMI (ST elevation myocardial infarction) Status: Resolved Past Medical History - Allergies and Home Meds Allergies/Adverse Reactions: Allergies No Known Allergies Allergy (Verified 11/05/20 10:57) Primary Care Physician: Tam Reid III, MD [Primary Care Provider] - 7 Days for suture removal Prior records reviewed: Yes Past Medical History: - - Reviewed in problem list Surgical History: noncontributory Lives: Spouse/ Significant Other Smoking Status: Former smoker Alcohol: None Drugs: None - Family History Paternal Family History: Family History (Last Reviewed 10/29/20 @ 14:[address] Santos Meng MD) Father Heart disease Myocardial infarction Brother Myocardial infarction Heart disease Brother Myocardial infarction Heart disease Family History: Reports: Heart Disease Review of Systems General: Denies: Chills, Fever Eyes: Denies: Visual changes - left, Visual changes - right ENT: Denies: Bilateral ear pain, Left ear pain Cardiovascular: Denies: Chest pain, Palpitations Respiratory: Denies: Dyspnea, Cough Gastrointestinal: Denies: Abdominal pain, Nausea Musculoskeletal: Denies: Myalgias, Arthralgias Skin: Reports: - - Laceration and traumatic amputation of the distal aspect of the right index finger Neurological: Denies: Headache, Weakness Psych: Denies: Depression, Anxiety Physical Exam General: Well nourished, No Acute Distress Head: Normocephalic, Atraumatic Eyes: Perrl, EOMI ENT: Moist mucous membranes Cardiovascular: Regular rate, Regular rhythm Respiratory: No distress, CTA bilaterally Skin: - - Laceration to the tip of the right index finger. [address] There is traumatic amputation of the medial aspect of the distal finger pad of the next finger. Neurological: Alert, Oriented x3 Psychological: Normal affect, Normal Mood Diagnostic/Tx/Re-eval - Medical Decision Making 1-year-old male presenting with bleeding from his laceration and traumatic amputation which she sustained earlier today with a table saw. Patient states he is on Brilinta and just wanted to get checked out. Gelfoam was applied to the wound and pressure dressing was applied. There was no immediate bleeding. Patient was given a Gelfoam for home that he can reapply. He was counseled that likely he would bleed from this intermittently given the traumatic amputation. The sutures are still in place. Patient given return precautions. Patient for discharge at this time. Impression: 1. Wound check?bleeding ED Disposition - Plan for ED Patient: Disposition: Home or Assisted Living Diagnosis: Finger laceration Instructions: ED Laceration: All Closures Referrals: Tam Reid III, MD [Primary Care Provider] - 7 Days for suture removal
[2020-11-05 19:33] VITALS: RESP 16
== END 2020-11-05 13:03 | disposition home or self-care (01) ==
PROVIDERS: Emergency Provider Student in an Organized Health Care Education/Training Program; PCP Family Medicine
DX: S61.210A Laceration without foreign body of right index finger without damage to nail, initial encounter (principal); W31.2XXA Contact with powered woodworking and forming machines, initial encounter; Y93.9 Activity, unspecified; Y92.9 Unspecified place or not applicable; Y99.9 Unspecified external cause status; I25.10 Atherosclerotic heart disease of native coronary artery without angina pectoris; I25.2 Old myocardial infarction; I10 Essential (primary) hypertension; Z95.5 Presence of coronary angioplasty implant and graft; Z79.82 Long term (current) use of aspirin; Z79.899 Other long term (current) drug therapy; Z87.891 Personal history of nicotine dependence
CPT/HCPCS: 12001; 90471; 90715; 99283

== ENCOUNTER → 2022-12-08 | Outpatient (CLI) | payer BC, SELFPAY ==
[2020-07-23 14:17] VITALS: BMI 32.8
[2022-12-08 11:54] LABS: AST(SGOT) 24 U/L (15-37); Alanine Aminotransfer ALT/SGPT 41 U/L (16-61); Albumin, Serum 3.9 g/dL (3.2-5.0); Alkaline Phosphatase 60 U/L (45-117); Bilirubin, Direct 0.21 mg/dL (0.00-0.30); Cholesterol 90 mg/dL (200); Globulin 3.4 g/dL (2.2-4.2); High Density Lipoprotein 33 mg/dL; Protein, Total 7.3 g/dL (6.4-8.2); Triglycerides 55 mg/dL; Very Low Density Lipoprotein 11 mg/dL (5-40)
== END | disposition home or self-care (01) ==
LOC: LAB 10:42
PROVIDERS: Referring Provider Internal Medicine Cardiovascular Disease; Visit Provider Internal Medicine Cardiovascular Disease
DX: E78.5 Hyperlipidemia, unspecified (principal); I25.10 Atherosclerotic heart disease of native coronary artery without angina pectoris
CPT/HCPCS: 36415; 80061; 80076

== ENCOUNTER → 2023-12-01 | Outpatient (CLI) | payer BC, SELFPAY ==
[2020-07-23 14:17] VITALS: BMI 32.8
--- OUTSIDE RECORDS SUMMARY | 2023-12-01 09:27 | XMS RPT_ITS | CCD ---
Author Name Unknown Address [address] [place] [address] Organization [facility] Care Team Providers Care [employer] Name Role Phone Franklin ESCOBEDO MD, Frank A Primary Care Provider Haily vailable GEOVANI MADRIGAL III Attending Unavailable GEOVANI MADRIGAL III Primary Care Unavailable Allergies Allergy Classification Reported Allergen(s) Allergy Type Date of Onset Reaction(s) Facility (3 sources) buPROPion; Translations: [BUPROPION HCL] Drug Allergy 09-13-2017 Other: See Comments [facility] (3 sources) Lisinopril; Translations: [LISINOPRIL] Drug Allergy 07-13-2016 Cough [facility] Work Phone: Medications Completed/Discontinued Medications Medication Drug Class(es) Dates Sig (Normalized) Sig (Original) acetaminophen 325 mg / oxyCODONE hydrochloride 5 mg oral tablet (2 sources) Opioid Agonist Start: 08-26-2017 take 1 tablet by mouth every four hours as needed oxyCODONE-acetami nophen (PERCOCET) 5-325 mg tablet Take 1 tablet by mouth every 4 hours as needed for Pain. PER DR. COSTELLO 0 08/26/2017 Active Problems Active Problems Problem Classification Problem Date Documented Date Episodic/Chronic Anxiety disorders (4 sources) Obsessional thoughts; Translations: [Mixed obsessional thoughts and acts] Onset: 01-28-2017 01-28-2017 Chronic Disorders of lipid metabolism (2 sources) Hyperlipidemia; Translations: [Hyperlipidemia, unspecified] Onset: 01-28-2017 01-28-2017 Chronic Essential hypertension (2 sources) Essential hypertension; Translations: [Essential (primary) hypertension] Onset: 03-16-2016 03-16-2016 Chronic Other nutritional; endocrine; and metabolic disorders (2 sources) Obese class I; Translations: [Obesity, unspecified] Onset: 10-06-2020 10-06-2020 Chronic Spondylosis; intervertebral disc disorders; other back problems (2 sources) Degeneration of lumbar intervertebral disc; Translations: [Other intervertebral disc degeneration, lumbar region] 10-06-2020 Chronic Past or Other Problems Problem Classification Problem Date Documented Da te Episodic/Chronic Spondylosis; intervertebral disc disorders; other back problems (2 sources) Chronic low back pain; Translations: [Chronic bilateral low back pain without sciatica] Onset: 10-06-2020 10-06-2020 Episodic Encounters Encounter Date Encounter Type Care Provider Facility Start: 04-06-2023 Refill Corine brooke MD Work Phone: [facility] Procedures Date Procedure Procedure Detail Performing Clinician Start: 11-12-2019 Colonoscopy Santos Meng MD Work Phone: Plan of Treatment Date Care Activity Detail Author Start: 10-04-2025 LIPID SCREEN LIPID SCREEN [facility] Start: 10-04-2023 DIABETES SCREEN DIABETES SCREEN [facility] Start: 07-01-2023 Influenza vaccination INFLUENZA (Sea son Ended) [facility] Start: 10-31-2022 DEPRESSION ASSESSMENT DEPRESSION ASS ESSMENT [facility] Start: 11-13-2021 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 DISEASE VISIT ANNUAL PCP TEAM CHRONIC DISEASE VISIT [facility] Start: 03-20-2021 PROSTATE CANCER SCRE ENING DISCUSSION PROSTATE CANCER SCREENING DISCUSSION [facility] Start: 11-12-2020 Colonoscopy COLONOSCOPY [facility] Start: 11-12-2020 COLORECTAL CANCER SCREENING COLORECTAL CANCER SCREENING [facility] Start: 2009 SHINGRIX VACCINE (1 of 2) SHINGRIX V ACCINE (1 of 2) [facility] Start: 2004 COLOGUARD (FIT-DNA) COLOGUARD (FIT-D NA) [facility] Start: [address] COLONOGRAPHY [facility] Start: 2004 FECAL OCCULT BLOOD FECAL OCCULT BLOO D [facility] Start: 2004 SIGMOIDOSCOPY SIGMOIDOSCOPY [facility] Start: 1978 Urine microalbumin profile DTAP,TDAP ,TD (1 - Tdap) [facility] Start: 1977 BP CONTROLLED (<130/80) BP CONTROLLE D (<130/80) [facility] Start: 1977 HEPATITIS C SCREENING HEPATITIS C HIEN SIMON [facility] Start: 1977 HIV SCREENING HIV SCREENING [facility] Start: 04-02-1960 COVID-19 VACCINE (#1) COVID-19 VACCI NE (#1) [facility] Payers Date Payer Category Payer Unknown [employer] PPO OOS [id number] 2015-Present [phone] [address] [place] [address] PPO [id number] 2015 Unknown [id number] Social History Date Type Detail Facility Start: 08-28-2018 Tobacco smoking stat [facility] Ex-smoker [facility] History of tobacco use Current smoker [facility] History of tobacco use Cigarette Smoker C [facility] Start: 08-28-2018 Cigarettes smoked cu rrent (pack per day) - Reported 1 [facility] Start: 08-28-2018 Tobacco use and exposure Smoke less tobacco non-user [facility] Start: 11-13-2020 Alcohol intake Current drinke r of alcohol (finding) [facility] Start: 08-28-2018 Alcohol Comment Occassionally- 1 beer with dinner daily [facility] Start: 1960 Sex Assigned At Not on file C [facility] History of Past illness Narrative 04-26-2017 Note Date & Type Note Facility documented as of this encounter (statuses as of 02/24/2023) [facility] History of Past illness Narrative 04-26-2017 Note Date & Type Note Facility documented as of this encounter (statuses as of 04/06/2023) [facility] Summary Purpose Family History No Family History Records Found Advance Directives No Advanced Directives Records Found Additional Source Comments Source Comments (unrecognize d section and content) In the event this informatio n is protected by the Federal Confidentiality of Alcohol and Drug Abuse Patient Records regulations: The Federal rules restrict any use of the information to criminally investigate or prosecute any alcohol or drug abuse patient.[facility] Reason for Visit (unrecogniz ed section and content) Care Teams (unrecognized sec tion and content) (unrecognized sect ion and content) No Status Records Found INFORMATION SOURCE (unrecogn ized section and content) FOR RECORDS PERTAINING TO PATIENTS WHO ARE OR HAVE BEEN ENROLLED IN A CHEMICAL DEPENDENCY/SUBSTANCEABUSE PROGRAM, SOME INFORMATION MAY BE OMITTED. This clinical summary was aggregated from multiple sources. Caution should be exercised in using it in the provision of clinical care. This summary normalizes information from multiple sources, and as a consequence, information in this document may materially change the coding, format and clinical context of patient data. In addition, data may be omitted in some cases. CLINICAL DECISIONS SHOULD BE BASED ON THE PRIMARY CLINICAL RECORDS. [facility] [employer] [facility]. provides no warranty or guarantee of the accuracy or completeness of information in this document.
[2023-12-01 10:40] LABS: AST(SGOT) 18 U/L (15-37); Alanine Aminotransfer ALT/SGPT 40 U/L (16-61); Albumin, Serum 3.9 g/dL (3.2-5.0); Alkaline Phosphatase 70 U/L (45-117); Bilirubin, Direct 0.34 mg/dL (0.00-0.30); Cholesterol 102 mg/dL (200); Globulin 3.5 g/dL (2.2-4.2); High Density Lipoprotein 31 mg/dL; Protein, Total 7.4 g/dL (6.4-8.2); Triglycerides 168 mg/dL; Very Low Density Lipoprotein 34 mg/dL (5-40)
== END | disposition home or self-care (01) ==
LOC: LAB 08:41
PROVIDERS: PCP Internal Medicine; Referring Provider Nurse Practitioner Family; Visit Provider Nurse Practitioner Family
DX: E78.5 Hyperlipidemia, unspecified (principal); I25.10 Atherosclerotic heart disease of native coronary artery without angina pectoris
CPT/HCPCS: 36415; 80061; 80076

== ENCOUNTER → 2024-12-01 | Outpatient (CLI) | payer BC, MEDICARE, SELFPAY ==
[2020-07-23 14:17] VITALS: BMI 32.8
[2024-12-01 10:27] LABS: AST(SGOT) 20 U/L (15-37); Alanine Aminotransfer ALT/SGPT 37 U/L (16-61); Albumin, Serum 3.8 g/dL (3.2-5.0); Alkaline Phosphatase 68 U/L (45-117); Bilirubin, Direct 0.23 mg/dL (0.00-0.30); Cholesterol 92 mg/dL (200); Globulin 3.3 g/dL (2.2-4.2); High Density Lipoprotein 33 mg/dL; Protein, Total 7.1 g/dL (6.4-8.2); Triglycerides 120 mg/dL; Very Low Density Lipoprotein 24 mg/dL (5-40)
== END | disposition home or self-care (01) ==
LOC: LAB 08:06
PROVIDERS: PCP Internal Medicine; Referring Provider Nurse Practitioner Family; Visit Provider Nurse Practitioner Family
DX: E78.00 Pure hypercholesterolemia, unspecified (principal)
CPT/HCPCS: 36415; 80061; 80076

== ENCOUNTER → 2024-12-21 | Outpatient (CLI) | payer BC, MEDICARE, SELFPAY ==
[2020-07-23 14:17] VITALS: BMI 32.8
[2024-12-21 10:25] LABS: Absolute Lymphocyte Count 3.05 X10^3/uL (0.83-4.51); Absolute Neutrophil Count 5.1 X10^3/uL (2.0-7.7); Basophil# 0.04 X10^3/uL; Basophil% 0.4 % (0-1); Eosinophil# 0.15 X10^3/uL; Eosinophils% 1.7 % (0-5); Hematocrit 45.1 % (40-54); Hemoglobin 15.9 g/dL (13.0-16.5); Lymphocyte # 3.05 X10^3/ul (0.83-4.51); Lymphocyte % 34.2 % (19-41); Mean Corp Hgb Conc 35.3 g/dL (32-36); Mean Corpuscular Hgb 31.5 pg (27.0-32.0); Mean Corpuscular Volume 89.3 fL (80-94); Mean Platelet Vol. 10.6 fl (6.2-12.0); Monocyte# 0.55 X10^3/uL; Monocyte% 6.2 % (0-10); NRBC Flagged by Analyzer 0 % (0-5); Neutrophil % 57.2 % (47-70); Platelet Count 170 K/mm3 (150-450); RBC Distribution Width CV 12.3 % (11.6-14.6); RBC Distribution Width SD 40.1 fl (35.1-43.9); Red Blood Count 5.05 M/mm3 (4.6-6.2); White Blood Count 8.9 K/mm3 (4.4-11.0)
[2024-12-21 11:04] LABS: Anion Gap 5 (5-15); BUN 15 mg/dL (7-18); BUN/Creat Ratio 19.5 RATIO (10-20); Chloride 104 mmol/L (98-107); Creatinine, Serum 0.77 mg/dL (0.70-1.30); EST Glomerular Filtration Rate 108 mL/min (>60); Est Glom Filt Rate - Afr Amer 131 mL/min (>60); Glucose 303 mg/dL (74-106); Potassium 4.3 mmol/L (3.5-5.1); Sodium Level 134 mmol/L (136-145)
== END | disposition home or self-care (01) ==
LOC: LAB 09:56
PROVIDERS: PCP Internal Medicine; Referring Provider Internal Medicine Cardiovascular Disease; Visit Provider Internal Medicine Cardiovascular Disease
DX: I25.10 Atherosclerotic heart disease of native coronary artery without angina pectoris (principal); I10 Essential (primary) hypertension
CPT/HCPCS: 36415; 80048; 84443; 85025